=== PATIENT | male | born 1945 | race Caucasian/White ===

== ENCOUNTER 2016-07-31 01:15 | Inpatient (IN) | payer OTHER ==
[2016-07-31] VITALS (7 sets, daily range): BP systolic 94–128; BP diastolic 50–88
[~2016-07-31] VITALS: Ht 177.8 cm; Wt 147.4 kg
--- NOTE | ~2016-07-31 | D ---
[facility] [place] [address] [place] [address] DISCHARGE SUMMARY Name: IVONNE SARKAR Room #: 436-P ADM IN M.R.#: [id number] Admission: 07/31/16 Attend Phys: Korina Abernathy Discharge: Date of : 49 Report #: [id number] THIS REPORT FOR: //name// CC: Ruben Cummings FINAL DIAGNOSES: 1. Acute on chronic respiratory failure. 2. Healthcare-associated pneumonia. 3. Bacteremia. 4. Oropharyngeal dysphagia. 5. Cerebrovascular disease. HOSPITAL COURSE: The patient was transferred with respiratory distress and placed back on the ventilator. He had just attempted to wean from a long-term bed at an LTAC facility and was using trach shield for a few days prior to his presentation. Hospital workup and treatment deemed that he had chronic respiratory failure needed chronic ventilator. There were some questions about some elevated cardiac enzymes. Cardiac service did not feel invasive workup is indicated due to his debility and he is not a candidate for invasive treatment. Medical therapy was the only indicated option. He failed a video swallow and we will resume tube feeding. He had blood cultures, which were coag-negative, gram-positive. ID felt this was likely a skin contaminant. Empiric antibiotics will continue until final cultures are obtained. On the day of discharge, he was asleep on the vent with stable vital signs. DISPOSITION: Return to [facility] long-term care facility on the chronic ventilator unit. I signed his transfer orders and IV antibiotics to continue maximum of 1 week, but if cultures come back that could be changed or discontinued earlier. He would be under the care of Dr. Boaz Cummings and follow up by Dr. Jarred Cummings. <ELECTRONICALLY SIGNED> By: Soren Sawant MD 08/02/16 1434 1321 1404 Soren Sawant MD /nt
--- NOTE | ~2016-07-31 | H ---
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 This is a patient who has been at the chronic vent unit and had recently been weaned from the ventilator and we will try to manage him as best we could, but he got in trouble again and had to be sent over and place back on the ventilator. There is really no history available from the patient. PAST MEDICAL HISTORY: Noteworthy for stroke, obstructive sleep apnea, and atrial fibrillation. We now know him well. MEDICATIONS: List is well documented on the record. FAMILY HISTORY, SOCIAL HISTORY, AND REVIEW OF SYSTEMS: Otherwise, negative other than his family down in [place] struggles with his deficiencies from the stroke. PHYSICAL EXAMINATION: GENERAL: Shows an awake, alert and oriented. VITAL SIGNS: He is on AC setting with a rate of 12, 50% FiO2 with sats in the high 90s. HEENT: Otherwise, negative. He has left neglect and significant right hemiparesis. CHEST: Coarse. CARDIOVASCULAR: Shows rhythm. ABDOMEN: Soft and nontender with PEG tube. EXTREMITIES: Shows edema and he has got a massive wound on his buttocks that we have known and have been working on for about the last year and it is significantly improved, but still significantly large stage 4. ASSESSMENT: This is a patient with respiratory failure from stroke and I think we proven now that he is ventilatory depended and he failed ventilatory weaning. We will have speech therapy see and return him to the chronic vent unit tomorrow. By: 1122 1200 Ruben Cummings MD /nt
--- NOTE | ~2016-07-31 | HC ---
[facility] [place] [address] CONSULTATION Name: IVONNE SARKAR Room #: 436-P [facility] IN M.R.#: [id number] Admission: 07/31/16 Attend Phys: Korina Abernathy Discharge: 08/02/16 Date of : 49 Report #: [id number] THIS REPORT FOR: //name// CC: Ruben Cumminsg DATE OF SERVICE: 07/31/2016 REASON FOR CONSULTATION: Respiratory failure. IMPRESSION: 1. Chronic respiratory failure. 2. Possible right infiltrate/pneumonia. 3. Elevated troponin. 4. History of cerebrovascular accident. 5. Permanent atrial fibrillation. PLAN: We will check sputum cultures and will continue on Zosyn. Await culture results, continue current ventilator settings. Continue aerosol. We will follow with you. DVT prophylaxis per Dr. Cummings. HISTORY OF PRESENT ILLNESS: A 71-year-old male with respiratory failure, comes in to hospital through emergency room with shortness breath and hypoxia. PAST MEDICAL HISTORY: ALLERGIES: To ZURI INHIBITORS and SULFA. PAST MEDICAL HISTORY: Includes 1. COPD. 2. Hypertension. 3. Peptic ulcer disease. 4. atrial fibrillation. 5. Overweight. 6. CHF. PAST SURGICAL HISTORY: Include hernia, trach and PEG. SOCIAL HISTORY: Positive tobacco in past. Negative ETOH currently. FAMILY HISTORY: Non-obtainable. REVIEW OF SYSTEMS: Positive shortness of breath, no definite chest pain, palpitations, feels comfortable on ventilator. PHYSICAL EXAMINATION: VITAL SIGNS: T-max 99.5, pulse 69, respirations 20, BP 99/65. EYES: Negative icterus. [facility] [address] [place] [address] CONSULTATION Name: IVONNE SARKAR Room #: 436-P DIS IN M.R.#: [id number] Admission: 07/31/16 Attend Phys: Korina Abernathy Discharge: 08/02/16 Date of : 49 Report #: [id number] NECK: Negative JVD. Trach in place. LUNGS: Clear anteriorly. HEART: Regular. ABDOMEN: Bowel sounds present. PEG tube in place, nontender. EXTREMITIES: Showed left hemiparesis. Extremities showed positive edema. LABORATORY DATA: A pH 7.425, pCO2 of 56, pO2 64, 40%, rate 18, tidal volume 650, PEEP of 5, minute ventilation 12 PICC airway pressure 24. White count 12.3, hemoglobin 13.7 and platelets 259. BUN 31, creatinine 0.8, sodium 143. SGPT 24. Troponin 0.69. ProBNP 1126. INR 1.5. We will follow closely with you. <ELECTRONICALLY SIGNED> By: Santiago Winston MD 08/04/16 0702 1646 1855 Santiago Winston MD /nt
--- NOTE | ~2016-07-31 | 2DMMODE ---
[facility] [place] [address] 2 D/M-MODE ECHOCARDIOGRAM Name: IVONNE SARKAR Room #: 436-P [facility] IN .R.#: [id number] Admission: 07/31/16 Attend Phys: Ruben Sargent Discharge: Date of : 49 Date of Service: 08/01/16 0825 Report #: [id number] THIS REPORT FOR: //name// APPROVED REPORT EXAM: Comprehensive 2D, Doppler, and color-flow Echocardiogram Patient Location: BedsideRoom 436 Blood Pressure: 125/58 mmHg HR: 100 bpm Rhythm: Atrial Fibrillation Other Information Study Quality: Adequate Indications Elevated BP Atrial Fibrillation Elevated troponin. Hx: Afib, COPD, HTN, morbid obesity. 2D Dimensions RVDd: 43.13 mm LVEF(%): 33.31 (>50%) IVSd: 16.09 (7-11mm) LVOT Diam: 22.45 (18-24mm) LVDd: 60.52 mm PWd: 12.31 (7-11mm) Ascending Aorta: 34.89 mm LVDs: 50.76 (25-40mm) Aortic Root: 38.00 mm Medrano's LVEF: 33.31 % Volumes Left Atrial Volume (Systole) Single Plane 4CH: 91.44 mL Single Plane 2CH: 102.65 mL Aortic Valve AoV Peak Jamal.: 1.14 m/s AO Peak Gr.: 5.32 mmHg LV Max P.89 mmHg LV Max: 0.69 m/s Mitral Valve MV E Max Jamal.: 0.72 m/s MV Decel. Time: 143.39 ms Pulmonary Valve [facility] [employer] [address] [place] [address] 2 D/M-MODE ECHOCARDIOGRAM Name: IVONNE SARKAR Room #: 436-P ADM IN M.R.#: [id number] Admission: 07/31/16 Attend Phys: Ruben Sargent Discharge: Date of : 49 Date of Service: 08/01/16 0825 Report #: [id number] PV Peak Jamal.: 0.74 m/s PV Peak Gr.: 2.22 mmHg Tricuspid Valve TR Peak Jamal.: 2.21 m/s RAP Estimate: 5.00 mmHg TR Peak Gr.: 19.96 mmHg RVSP: 25.00 mmHg Left Ventricle Left ventricle is mildly dilated. Moderate concentric left ventricular hypertrophy. Left ventricular systolic function is at lower limits of normal. LVEF is 45-50%. Diastology indeterminate due to Afib. Right Ventricle Right ventricle is dilated. Right ventricle is hypokinetic. Atria Left atrium is moderately dilated. Right atrium is moderately dilated. Aortic Valve Mild aortic valve calcification Mild aortic regurgitation. There is no aortic valvular stenosis. Mitral Valve Mild mitral annular calcification. Mild to moderate mitral regurgitation. Tricuspid Valve The tricuspid valve is normal in structure. There is mild to moderate tricuspid regurgitation. The right atrial pressure is estimated at 5 mmHg. Right ventricular systolic pressure is estimated at 25 mmHg. Pulmonic Valve Pulmonic valve is not well visualized. Trace pulmonic regurgitation. Great Vessels Aortic root is mildly dilated. The ascending aorta is normal in size. IVC is normal in size and collapses >50% with inspiration. Pericardium There is no pericardial effusion. [facility] [address] [address] 2 D/M-MODE ECHOCARDIOGRAM Name: IVONNE SARKAR Room #: 436-P [facility] IN ..#: [id number] Admission: 07/31/16 Attend Phys: Ruben Sargent Discharge: Date of : 49 Date of Service: 08/01/168[address] Report #: [id number] <Conclusion> Left ventricular systolic function is at lower limits of normal. LVEF is 45-50%. Both atria are moderately dilated. Mild aortic valve calcification without stenosis or insufficiency Mild mitral annular calcification. Mild to moderate mitral regurgitation. There is mild to moderate tricuspid regurgitation. The right atrial pressure is estimated at 5 mmHg. Right ventricular systolic pressure is estimated at 25 mmHg. There is no pericardial effusion. <ELECTRONICALLY SIGNED> By: Nolberto Bansal MD, [facility] 08/01/16824 4 0825 Nolberto Bansal MD, FACC /INF
--- NOTE | ~2016-07-31 | EKG ---
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
--- NOTE | ~2016-07-31 | HC ---
[facility] [place] [address] [place] [address] CONSULTATION Name: IVONNE SARKAR Room #: 436-P ADM IN M.R.#: [id number] Admission: 07/31/16 Attend Phys: Korina Abernathy Discharge: Date of : 49 Report #: [id number] THIS REPORT FOR: //name// CC: Ruben Cummings REASON FOR CONSULTATION: I was asked to evaluate concerning pneumonia and bacteremia. HISTORY OF PRESENT ILLNESS: The patient is a 71-year-old with underlying history of atrial fibrillation, hypertension, COPD, previous stroke with left hemiparesis and respiratory failure, who had been on chronic ventilatory unit at [facility]. He did wean from the ventilator, but developed respiratory compromise, went back on the ventilator and was rehospitalized. Has a right lower lobe infiltrate, elevated troponin and positive urine studies. The patient was alert and responsive. Could not give me a history. Did not appear to be in any distress. He stated that he was in no pain. No nausea, vomiting or diarrhea noted. He does have an indwelling Maynard catheter. He was placed back on the ventilator at 50% FIO2. Sputum cultures are pending. ALLERGIES: SULFA, ZURI INHIBITORS. MEDICATIONS: As noted on his JUL, now on Zosyn. PAST MEDICAL HISTORY: Atrial fibrillation, hypertension, obstructive sleep apnea, COPD, diabetes, obesity, hypothyroidism, tracheostomy, PEG tube, left hip pressure ulcer, treated in 2016, stroke with left-sided weakness and aphasia. SOCIAL HISTORY: He is , nonsmoker, no significant alcohol intake. FAMILY HISTORY: Not available. PHYSICAL EXAMINATION: VITAL SIGNS: He is afebrile, hemodynamically stable. GENERAL: He is alert and cooperative. Unable to roll in bed on his own. Did not have assistance to assess his posterior skin. Anteriorly was unremarkable. He did have changes of the venous stasis dermatitis to both lower extremities. HEENT: Unremarkable. Trach was unremarkable. Peripheral IV in his right wrist. CHEST: Clear anteriorly. HEART: Regular. ABDOMEN: Obese, soft, PEG site unremarkable. Indwelling Maynard catheter. LABORATORY STUDIES: Sodium 143, potassium 4.8, bicarbonate of 34, creatinine 0.8, alkaline phosphatase 127, ALT 24, hemoglobin 13.7, white count 12.3, platelet count 259,000. Troponin 0.7. BNP 1126. Blood cultures 1/ showing Staph. Urinalysis positive for wbc's and bacteria. Urine culture pending. Sputum culture pending. Urine antigens for strep pneumo and Legionella pending. [address] [address] CONSULTATION Name: IVONNE SARKAR Room #: 436-P [facility] IN M.R.#: [id number] Admission: 07/31/16 Attend Phys: Korina Abernathy Discharge: Date of : 49 Report #: [id number] Chest x-ray, right lower lobe atelectasis, infiltrate. Echocardiogram, mild to moderate mitral regurgitation and tricuspid regurgitation. Ultrasound of lower extremity negative for DVT. IMPRESSION: A 71-year-old with respiratory failure following stroke underlying chronic obstructive pulmonary disease, atrial fibrillation, hypertension, now with staphylococcal bacteremia. Still indeterminate whether this is a contaminant or true infection. Recommend adding vancomycin to Zosyn pending culture results. We will evaluate with further assistance next visit to reassess his right hip region. By nursing records, it appears that the right trochanteric wound remains pink with good granulation tissue and no purulent drainage. <ELECTRONICALLY SIGNED> By: Jarred Cummings MD 08/02/16 0847 0852 1020 Jarred Cummings MD /nt
[~2016-07-31 01:15] MED LIST: ACCUNEB SO1.25 MG/1 INH; AMLODIPINE BESY10 MG PO; ATIVAN0.5 MG PER TUBE; BUSPIRONE HCL5 MG PER TUBE; CARDIZEM60 MG PER TUBE; CARVEDILOL12.5 MG PER TUBE; CERTA VITE9 MG/15 ML PER TUBE; COUMADIN 4 MG TA4 M1 PER TUBE; DAKIN'S473 M1 MC; DOXYCYCLINE 10100 MG PO; HYDROCODONE-AP1 EAC6 PER TUBE; K-SOL20 MEQ/15 PER TUBE; LASIX 40 MG TAB40 M2 PER TUBE; LEVOTHYROXIN0.112 M1 PO; LIPITOR 20 MG T20 M1 PER TUBE; NEOSPORIN28 GM TOP; NYAMYC15 GM TOP; ORAZINC220 MG PER TUBE; PEPCID20 MG PER TUBE; PULMICORT0.5 MG/22 INH; ROBITUSSIN100 MG/53 PER TUBE; ZINC SULFATE 2220 M1 PER TUBE
[2016-07-31 01:40] LABS: ABSOLUTE NEUTROPHILS 8.9 thou/uL (1.4-8.2); BASOPHILS 0.7 % (0.0-2.0); EOSINOPHILS 2.6 % (0.0-3.0); HEMATOCRIT 41.4 % (42.0-52.0); HEMOGLOBIN 13.7 gm/dL (14.0-18.0); MCH 30.2 pg (26.0-34.0); MCHC 33.1 g/dL (28.0-37.0); MCV 91.3 fL (80.0-100.0); MONOCYTES 8.5 % (1.0-8.0); PLATELET COUNT 259 thou/uL (150-400); POLYS 72.2 % (36.0-66.0); RBC 4.54 mil/uL (4.50-6.00); RDW 17.1 % (10.5-14.5); WBC 12.3 thou/uL (4.0-11.0)
[2016-07-31 01:47] LABS: ABG SAMPLE TYPE ARTERIAL; BE(vivo) 9.3 mmol/L (-2 to +3); HCO3 35.8 mmol/L (22.0-26.0); LACTATE 1.78 mmol/L (0.5-2.0); O2(CT) 18.6 mL/dL (15.0-23.0); O2Hb 91.5 % (92.0-98.0); PCO2 55.8 mmHg (35.0-45.0); PO2 63.4 mmHg (80.0-100.0); pH 7.425 (7.360-7.450); sO2 92.3 % (92.0-98.0); tCO2 37.5 mmol/L (24.0-30.0)
[2016-07-31 01:48] LABS: STICK SITE R.RADIAL
[2016-07-31 01:49] LABS: ABG COMMENT A/C RATE 12; TIDAL VOLUME 650 ml
[2016-07-31 01:49] LABS: MANUAL DIFF NO
[2016-07-31 02:06] LABS: ALBUMIN 2.5 g/dL (3.4-5.0); CREATININE 0.8 mg/dL (0.6-1.3); POTASSIUM 4.8 mmol/L (3.5-5.1); TOTAL BILIRUBIN 0.5 mg/dL (<0.1-1.0)
[2016-07-31 02:08] LABS: TROPONIN-I 0.79 ng/mL (<0.04-0.07)
[2016-07-31 02:21] LABS: TOTAL PROTEIN 8.2 g/dL (6.4-8.2)
[2016-07-31] MEDS ORDERED: LEVAQUIN 500 M500 M2 PO (04:03)
[2016-07-31] MEDS ORDERED: ARGINAID POWDE1 EACH PER TUBE (04:06)
[2016-07-31] MEDS ORDERED: CHLORASEPTIC20 ML MM (07:57)
[2016-07-31 10:09] LABS: URINE BILIRUBIN NEGATIVE (Negative); URINE BLOOD 3+ (Negative); URINE COLOR YELLOW; URINE GLUCOSE-RANDOM* NEGATIVE (Negative); URINE KETONES NEGATIVE (Negative); URINE NITRITE NEGATIVE (Negative); URINE PROTEIN (DIPSTICK) 2+ (Negative); URINE SPECIFIC GRAVITY 1.025 (1.003-1.035); URINE UROBILINOGEN 0.2 E.U./dl (0.2-1.0)
[2016-07-31 10:32] LABS: AMORPHOUS URATES Moderate /LPF (None Seen); CASTS None Seen /LPF (None Seen); SQUAMOUS None Seen /LPF (0-3); URINE RBC 3-10 Few /HPF (0-2); URINE WBC >25 Many /HPF (0-5)
[2016-07-31 13:59] LABS: INR 1.5; PROTIME 15.8 Seconds (9.3-11.4)
[2016-08-01 04:51] VITALS: BP 128/61
[2016-08-01 07:49] VITALS: BP 126/68
[2016-08-01] MEDS ORDERED: ZOSYN 3.3753.375 GM IV (10:16)
[2016-08-01] MEDS ORDERED: VANCO 1 GR1 GM/250 M IVPB (10:17)
[2016-08-01 14:43] LABS: ABSOLUTE NEUTROPHILS 7.1 thou/uL (1.4-8.2); BASOPHILS 0.6 % (0.0-2.0); EOSINOPHILS 2.2 % (0.0-3.0); HEMATOCRIT 39.9 % (42.0-52.0); HEMOGLOBIN 13.2 gm/dL (14.0-18.0); LYMPHOCYTES 14.5 % (24.0-44.0); MCH 30.4 pg (26.0-34.0); MCHC 33.2 g/dL (28.0-37.0); MCV 91.5 fL (80.0-100.0); MONOCYTES 7.6 % (1.0-8.0); PLATELET COUNT 237 thou/uL (150-400); POLYS 75.1 % (36.0-66.0); RBC 4.36 mil/uL (4.50-6.00); RDW 17.5 % (10.5-14.5); WBC 9.4 thou/uL (4.0-11.0)
[2016-08-01 14:49] LABS: MANUAL DIFF NO
[2016-08-01 16:27] LABS: ALBUMIN 2.4 g/dL (3.4-5.0); CALCIUM 9.5 mg/dL (8.5-10.1); POTASSIUM 3.5 mmol/L (3.5-5.1); TOTAL BILIRUBIN 0.8 mg/dL (<0.1-1.0); TOTAL PROTEIN 7.7 g/dL (6.4-8.2)
[2016-08-01 16:30] VITALS: BP 109/60
[2016-08-01 20:00] VITALS: BP 107/73
[2016-08-02] VITALS: BP 110/70
[2016-08-02 04:00] VITALS: BP 110/67
[2016-08-02 08:33] VITALS: BP 106/65
[2016-08-02 11:33] VITALS: BP 99/61
== END 2016-08-02 16:05 | DRG 208 ==
LOC: ER 01:15 → 4S 03:48
PROVIDERS: Emergency Medicine; Internal Medicine; Internal Medicine Pulmonary Disease; Nurse Practitioner Gerontology
PROC: 5A1945Z Respiratory Ventilation, 24-96 Consecutive Hours (ICD-10-PCS; principal; 2016-07-31)
DX: J18.9 Pneumonia, unspecified organism (principal); J96.20 Acute and chronic respiratory failure, unspecified whether with hypoxia or hypercapnia; Z68.42 Body mass index [BMI] 45.0-49.9, adult; J44.0 Chronic obstructive pulmonary disease with (acute) lower respiratory infection; I11.0 Hypertensive heart disease with heart failure; E03.9 Hypothyroidism, unspecified; I50.9 Heart failure, unspecified; J15.9 Unspecified bacterial pneumonia; G47.33 Obstructive sleep apnea (adult) (pediatric); E66.01 Morbid (severe) obesity due to excess calories; E11.9 Type 2 diabetes mellitus without complications; I48.2 Chronic atrial fibrillation; Z87.891 Personal history of nicotine dependence; Z88.2 Allergy status to sulfonamides; Z88.8 Allergy status to other drugs, medicaments and biological substances; Z86.73 Personal history of transient ischemic attack (TIA), and cerebral infarction without residual deficits; Z87.11 Personal history of peptic ulcer disease; Z93.1 Gastrostomy status; Z93.0 Tracheostomy status
CPT/HCPCS: 10100

== ENCOUNTER 2016-09-18 12:20 | Emergency (ER) | payer OTHER ==
[~2016-09-18] VITALS: Ht 182.9 cm; Wt 117.9 kg
[2016-09-18 12:20] VITALS: BP 95/60
[~2016-09-18 12:20] MED LIST changes: +ARGINAID POWDE1 EACH PER TUBE; +CHLORASEPTIC20 ML MM; +LEVAQUIN 500 M500 M2 PO; +VANCO 1 GR1 GM/250 M IVPB; +ZOSYN 3.3753.375 GM IV
[2016-09-18 12:50] LABS: URINE BILIRUBIN NEGATIVE (Negative); URINE BLOOD 1+ (Negative); URINE COLOR YELLOW; URINE GLUCOSE-RANDOM* NEGATIVE (Negative); URINE KETONES NEGATIVE (Negative); URINE LEUKOCYTES-REFLEX 3+ (Negative); URINE PROTEIN (DIPSTICK) 2+ (Negative); URINE UROBILINOGEN 0.2 E.U./dl (0.2-1.0)
[2016-09-18 12:50] LABS: ABSOLUTE NEUTROPHILS 10.6 thou/uL (1.4-8.2); BASOPHILS 0.5 % (0.0-2.0); EOSINOPHILS 0.6 % (0.0-3.0); HEMATOCRIT 40.2 % (42.0-52.0); HEMOGLOBIN 12.9 gm/dL (14.0-18.0); LYMPHOCYTES 15.1 % (24.0-44.0); MCHC 32.1 g/dL (28.0-37.0); MCV 93.4 fL (80.0-100.0); MONOCYTES 7.5 % (1.0-8.0); PLATELET COUNT 230 thou/uL (150-400); POLYS 76.3 % (36.0-66.0); RDW 16.8 % (10.5-14.5); WBC 13.9 thou/uL (4.0-11.0)
[2016-09-18 12:57] LABS: AMORPHOUS PHOSPHATES Moderate /LPF (None Seen); CASTS None Seen /LPF (None Seen); SQUAMOUS 0-3 Few /LPF (0-3)
[2016-09-18 12:58] LABS: URINE RBC 0-2 Rare /HPF (0-2); URINE WBC-REFLEX 0-5 Rare /HPF (0-5)
[2016-09-18 12:59] LABS: CALCIUM 9.7 mg/dL (8.5-10.1); CREATININE 0.9 mg/dL (0.7-1.3); POTASSIUM 4.2 mmol/L (3.5-5.1)
[2016-09-18 13:03] LABS: ALBUMIN 2.3 g/dL (3.4-5.0); DIRECT BILIRUBIN 0.1 mg/dL (<0.1-0.3); TOTAL BILIRUBIN 0.4 mg/dL (<0.1-1.0); TOTAL PROTEIN 8.9 g/dL (6.4-8.2)
[2016-09-18 13:06] LABS: SSA (PROTEIN CONFIRMATORY) 2+ (APPROX. 10-100) mg/dL (Negative)
[2016-09-18 13:10] LABS: MANUAL DIFF NO
[2016-09-18] MEDS ORDERED: LEVAQUIN 750 M750 MG PO (14:16)
[2016-09-18 18:40] VITALS: BP 132/62
== END 2016-09-18 18:52 | disposition home or self-care (01) ==
LOC: ER 12:20 → EROBS 13:46 → ER 18:52
PROVIDERS: Emergency Medicine
DX: N39.0 Urinary tract infection, site not specified (principal); I10 Essential (primary) hypertension; E03.9 Hypothyroidism, unspecified; J96.10 Chronic respiratory failure, unspecified whether with hypoxia or hypercapnia; G47.33 Obstructive sleep apnea (adult) (pediatric); E11.9 Type 2 diabetes mellitus without complications; I48.2 Chronic atrial fibrillation; E66.01 Morbid (severe) obesity due to excess calories; Z68.35 Body mass index [BMI] 35.0-35.9, adult; Z88.2 Allergy status to sulfonamides; Z88.8 Allergy status to other drugs, medicaments and biological substances; Z87.891 Personal history of nicotine dependence

== ENCOUNTER 2016-09-28 03:11 | Inpatient (IN) | payer OTHER ==
[~2016-09-28] VITALS: Ht 182.9 cm; Wt 146.8 kg
[2016-09-28] VITALS (63 sets, daily range): BP systolic 51–173; BP diastolic 28–154
--- NOTE | ~2016-09-28 | HC ---
[facility] [place] [address] CONSULTATION Name: IVONNE SARKAR Room #: 247-P ADM IN M.R.#: [id number] Admission: 09/28/16 Attend Phys: Korina Abernathy Discharge: Date of : 49 Report #: [id number] THIS REPORT FOR: //name// CC: Ruben Cummings PRIMARY CARE PHYSICIAN: Dr. Boaz Cummings. REFERRAL PHYSICIAN: Dr. Sawant. REASON FOR REFERRAL: Acute on chronic respiratory failure. HISTORY OF PRESENT ILLNESS: The patient is a 71-year-old white male who was brought to the Emergency Room with altered mental status. He was felt to have pneumonia. A pulmonary consultation was requested. Due to history of CVA, the patient has become ventilator dependent. He suffered a right middle cerebral artery cerebrovascular accident with left side hemiparesis. He has morbid obesity along with obstructive sleep apnea, diabetes, chronic atrial fibrillation, hypothyroidism, hypertension. The patient was last hospitalized in 07/2016, pneumonia. Chest x-ray performed on admission revealed left lower lobe infiltrates, mild right lower lobe infiltrates, volume loss. PAST MEDICAL HISTORY: As mentioned above. Chronic respiratory failure, ventilator dependent, following a right-sided with CVA, left hemiparesis, obesity, obstructive sleep apnea, diabetes mellitus type 2, atrial fibrillation, hypertension, debility along with a history of stage IV decubitus ulcer involving his left hip. PAST SURGICAL HISTORY: As mentioned above, status post chronic tracheostomy. ALLERGIES: SULFA AND ZURI INHIBITORS, REACTIONS NOT SPECIFIED. MEDICATIONS: From the LTAC revealed nebulized albuterol, Synthroid, Coreg, Cardizem, Lasix, zinc, potassium supplements, Ativan, arginine, Coumadin. FAMILY HISTORY: Noncontributory. SOCIAL HISTORY: The patient has smoked in the past. No alcohol use. He currently resides at long-term care facility due to vent dependency and debility following his CVA. REVIEW OF SYSTEMS: Unobtainable as the patient is somnolent. PHYSICAL EXAMINATION: [facility] [address] [place] [address] CONSULTATION Name: IVONNE SARKAR Room #: 247-P [facility] IN .R.#: [id number] Admission: 09/28/16 Attend Phys: Korina Abernathy Discharge: Date of : 49 Report #: [id number] VITAL SIGNS: Temperature is 97.6 degrees Fahrenheit, pulse is 100, respiratory rate is 22, blood pressure 109/61 mmHg, saturation 99%. HEENT: Normocephalic, atraumatic. NECK: Supple, without any lymphadenopathy or thyromegaly. CHEST: Breath sounds are fair. A few scattered crackles in the bases. No wheezes. CARDIOVASCULAR: Heart sounds are distant. No obvious murmurs or gallop. Pulses are 2+/4+ bilaterally. ABDOMEN: Soft, nontender, no organomegaly or masses felt. GENITOURINARY: Deferred. RECTAL: Deferred. EXTREMITIES: Remarkable 1+ bilateral pretibial edema. NEUROLOGIC: The patient is to quite somnolent this morning to verbal stimuli. LABORATORY DATA: Chest x-ray as mentioned above. CT head showed extensive encephalomalacia involving the right middle cerebral artery division, old right middle cerebral artery infarct, atrophy with chronic microvascular changes. UA was notable for increase in WBCs, bacteria. WBC 15,900, hemoglobin is 12.8. No significant bandemia. Platelets are normal. Sodium 154, potassium 4.8, chloride 113, BUN is 65, creatinine is 1.0, bicarbonate is 37, INR is 1.8. Arterial blood gas revealed pH 7.36, pCO2 of 63, pO2 102 on FiO2 70%, ventilator are parameters reviewed. IMPRESSION: 1. Acute on chronic hypercapnic hypoxic respiratory failure in this 71-year-old white male. Chest x-ray shows new infiltrates. He has leukocytosis. UA was also remarkable for wbc's and bacteria. Pneumonia, suspected, nosocomial infection should be suspected including possible aspiration. 2. Infiltrates, probable pneumonia as mentioned above. 3. Possible urinary tract infection. 4. History of cerebrovascular accident with left-sided hemiparesis, debility along with ventilator dependency. 5. Hypernatremia along with azotemia. This suggests volume depletion. 6. Permanent atrial fibrillation, on chronic anticoagulation. INR is subtherapeutic at 1.8. 7. Encephalopathy, due to toxic and metabolic causes. 8. Sepsis, severe with borderline hypotension. Sepsis protocol will be appropriate. RECOMMENDATION: Agree with Zosyn and vancomycin. Would also start IV fluids to correct electrolyte abnormalities. DVT and GI prophylaxis will be addressed. Once stable, nutritional support will be started. <ELECTRONICALLY SIGNED> By: Kev Mario MD 09/28/16 1254 1034 1246 Kev Mario MD /nt
--- NOTE | ~2016-09-28 | H ---
[facility] [place] [address] [place] [address] HISTORY AND PHYSICAL Name: IVONNE SARKAR Room #: 247-P ADM IN M.R.#: [id number] Admission: 09/28/16 Attend Phys: Korina Abernathy Discharge: Date of : 49 Report #: [id number] THIS REPORT FOR: //name// CC: Ruben Cummings DATE OF SERVICE: 09/28/2016 CHIEF COMPLAINT: Altered mental status and low blood pressure. HISTORY OF PRESENT ILLNESS: The patient is a 71-year-old gentleman who is ventilator dependent, treated at [facility], sent to the hospital with altered mental status. The nursing staff said he was less responsive than his baseline. They have also noted some low blood pressures. In the last week or 10 days, he had been seen in the Emergency Room and treated with empiric antibiotics and sent back to the facility. However, he has had a change in status in the last 24 hours and was admitted with a working diagnosis of sepsis. PAST MEDICAL HISTORY: Cerebrovascular disease, chronic hypoxic respiratory failure, post stroke right middle cerebral artery stroke with left hemiparesis, chronic atrial fibrillation, aspiration pneumonia, diabetes type 2, obstructive sleep apnea, morbid obesity, history of MRSA, hypertension, hypothyroidism, ventilator dependent. PAST SURGICAL HISTORY: Trach and PEG. FAMILY HISTORY: Unknown. SOCIAL HISTORY: Unknown. ALLERGIES: ZURI INHIBITORS and SULFA. MEDICATIONS: Albuterol, Levoxyl, Coreg, diltiazem, Lasix, hydrocodone, zinc, potassium, Ativan, Coumadin. REVIEW OF SYSTEMS: He is unable to give review. PHYSICAL EXAMINATION: VITAL SIGNS: Temperature 36.4, pulse 100, respirations 23, blood pressure 94/52, ranging to 109/61, O2 sat 99% on the ventilator 40%. GENERAL: He is asleep, marginally alert, looks chronically ill. HEAD AND NECK: Unremarkable with trach site in place. LUNGS: Clear anteriorly. HEART: Regular. ABDOMEN: Soft, normoactive bowel sounds. PEG tube in place. EXTREMITIES: 1+ edema. [facility] [address] [place] [address] HISTORY AND PHYSICAL Name: IVONNE SARKAR Room #: 247-P ADM IN M.R.#: [id number] Admission: 09/28/16 Attend Phys: Korina Abernathy Discharge: Date of : 49 Report #: [id number] NEUROLOGIC: I cannot get him to follow any type of neuro exam. LABORATORY DATA: Reviewed, appears to have chronic CO2 elevation at 63 on ABG. White count was 15.9 with left shift. INR is 1.8. Sodium was 154. BUN 65. Urinalysis was abnormal. ASSESSMENT: 1. Sepsis syndrome. 2. Chronic hypoxic respiratory failure. 3. Atrial fibrillation. 4. Cerebrovascular disease. 5. Late effect stroke, left hemiparesis. 6. Anemia of chronic disease. 7. Hypernatremia. 8. Cystitis. 9. Diarrhea. 10. Chronic anticoagulation. 11. Chronic ventilator dependence. PLAN: He is admitted to ICU for full workup and treatment. Pulmonary and ID have been consulted and talked to the nurse about stool studies. Home medications will be adjusted accordingly given his electrolyte imbalance and hypotension. <ELECTRONICALLY SIGNED> By: Soren Sawant MD 09/29/16 0835 0946 1012 Soren Sawant MD /nt
--- NOTE | ~2016-09-28 | HC ---
[facility] [place] [address] CONSULTATION Name: IVONNE SARKAR Room #: 452-P [facility] IN M.R.#: [id number] Admission: 09/28/16 Attend Phys: Korina Abernathy Discharge: 10/06/16 Date of : 49 Report #: [id number] THIS REPORT FOR: //name// CC: Ruben Cummings DATE OF SERVICE: 09/28/2016 CHIEF COMPLAINT: Left hip ulceration. HISTORY OF PRESENT ILLNESS: This is a 71-year-old white male who is ventilator dependent, who was admitted through the emergency department for btrzd-ty-zdgrdyi respiratory failure. The patient is currently in the ICU. We have been asked to follow the patient for a chronic ulceration on his left greater trochanteric region. The patient is well known to us from a previous hospitalization in the past for pneumonia. The patient denies any other associated wounds at this time. The patient denies any pain associated with the wound itself. PAST MEDICAL HISTORY: Significant for CVA with ventilator dependency and respiratory failure. 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 CURRENT MEDICATIONS: Multiple, I reviewed the patient's medication list. DRUG ALLERGIES: SULFA and ZURI INHIBITORS. SOCIAL HISTORY: The patient resides in a chronic fci care facility, ventilator dependent. FAMILY HISTORY: Not pertinent to current medical condition. REVIEW OF SYSTEMS: Unobtainable given the fact that the patient is intubated and somnolent. PHYSICAL EXAMINATION: HEENT: Normocephalic, atraumatic. Mucous membranes are somewhat dry. Pupils are round. Sclerae are white. NECK: The patient has tracheostomy in place without signs of excoriation or JVD. BACK: Nontender. LUNGS: Slightly diminished breath sounds heard throughout. Occasional scattered wheeze. CHEST: Nontender. HEART: Regular, without murmur. ABDOMEN: Obese, soft, nontender. PEG tube is in place. [facility] [address] [place] [address] CONSULTATION Name: IVONNE SARKAR Room #: 452-P DIS IN M.R.#: [id number] Admission: 09/28/16 Attend Phys: Korina Abernathy Discharge: 10/06/16 Date of : 49 Report #: [id number] EXTREMITIES: The patient has no movement in the left side. Bilateral heels are intact without ulcerations. Distal pulses are intact. Evaluation of left greater trochanteric region reveals an ulceration, which is stage 4 with exposed bone, which measures 9.0 x 4.5 x 5.5 cm. There is a tunnel that goes 8 cm ____. There is moderate amount of seropurulent drainage noted with minimal odor. Periulcer itself ____ is otherwise intact without significant signs of erythema, warmth, fluctuance or cellulitis. NEUROLOGIC: Cranial nerves 2-12 are grossly intact. The patient has left-sided hemiparesis. LABORATORY VALUES: White count 9.4 and hemoglobin 10.9. Albumin is low at 2.3. IMPRESSION: 1. Chronic stage 4 left greater trochanteric ulceration, overall stable. 2. Diabetes mellitus. 3. Chronic respiratory failure with ventilator dependence. 4. Severe protein-calorie malnutrition with albumin of 2.3. 5. Slzbu-eq-vcorsyi respiratory failure. 6. Generalized debility. PLAN: At this time, while the patient is hospitalized here, we will use Dakin's quarter strength wet-to-dry dressings b.i.d., cover this with ABDs to the left greater trochanteric ulceration. We will have the patient on a low air loss mattress and have him turned every 2 hours to offload his sacral coccygeal area which is free from any ulcerations at this time. We will use heel protection at all times given the fact the patient is at high risk for developing a heel ulceration. We will make sure we maximize his protein supplementation via his tube feedings to assist in the healing. We will continue to manage his wound care while he is here in the hospital. By: [id number] Walker Rehman MD /lilia
--- NOTE | ~2016-09-28 | EKG ---
[address] [address] ELECTROCARDIOGRAM REPORT Name: IVONNE SARKAR Room #: 247-P ADM IN M.R.#: [id number] Admission: 09/28/16 Attend Phys: Korina Abernathy Discharge: Date of : 49 Report #: [id number] THIS REPORT FOR: //name// [facility] ED Test Date: 2016-09-28 Test Time: 03:15:02 Pat Name: IVONNE SARKAR Department: Room: 247 P Gender: M Chief Of Pediatric Urology: SIRI : 1945 Requested By: Meeta Aldridge Order Number: [id number] MD: Nolberto Bansal Measurements Intervals [place] Rate: 122 P: [place]: QRS: -79 QRSD: 163 T: 6 QT: 353 QTc: 503 Interpretive Statements Atrial flutter with 2:1 AV block RBBB and LAFB Compared to ECG 07/31/2016 01:21:17 No significant changes found Electronically Signed On 09-28-2016 7:59:24 CDT by Nolberto Bansal [email or web address] <ELECTRONICALLY SIGNED> By: Nolberto Bansal MD, [facility] 09/28/16 0759 0315 0315 Nolberto Bansal MD, [facility] /EPI
--- NOTE | ~2016-09-28 | D ---
[facility] [place] [address] DISCHARGE SUMMARY Name: IVONNE SARKAR Room #: 452-P [facility] IN M.R.#: [id number] Admission: 09/28/16 Attend Phys: Korina Abernathy Discharge: 10/06/16 Date of : 49 Report #: [id number] THIS REPORT FOR: //name// CC: Ruben Cummings FINAL DIAGNOSES: 1. Sepsis. 2. Healthcare-associated pneumonia related to pseudomonas. 3. Chronic hypoxic respiratory failure. 4. Cerebrovascular disease. 5. Atrial fibrillation. 6. Ventilator dependence. HOSPITAL COURSE: The patient was admitted with altered mental status and hypotension. He was treated for sepsis. Ultimately was diagnosed with pseudomonas pneumonia. He required pressors, fluids at first and then transferred out of ICU, then he had a hypoxic episode on the ventilator and he was transferred back to ICU. Followup x-ray revealed pulmonary edema and he was treated with Lasix. Follow up sputum continued to show pseudomonas. Heart rate was stable with Coreg and Cardizem and he was continued on Coumadin. He was started back on tube feeding. There are no plans to wean from the ventilator. PHYSICAL EXAMINATION: On the day of discharge: GENERAL: He was asleep on the event on 40% FIO2, heart rate was stable and he had stable vital signs. LUNGS: Clear. HEART: Irregular. ABDOMEN: Soft, normoactive bowel sounds. He was tolerating tube feeding. EXTREMITIES: Showed no edema. DISPOSITION: Return to his long-term ventilator unit at [facility] under the care of Dr. Cummings, n.p.o. status with tube feeding and water flushes. I signed his transfer medications. He will have lab work in 3 days with Coumadin monitoring included. He will have Zosyn for 10 days. <ELECTRONICALLY SIGNED> By: Soren Sawant MD 10/08/16 0749 0920 1910 Soren Sawant MD /nt
--- NOTE | ~2016-09-28 | HC ---
[facility] [address] CONSULTATION Name: IVONNE SARKAR Room #: 247-P ADM IN M.R.#: [id number] Admission: 09/28/16 Attend Phys: Korina Abernathy Discharge: Date of : 49 Report #: [id number] THIS REPORT FOR: //name// CC: Ruben Cummings DATE OF SERVICE: 09/28/2016 REASON FOR CONSULTATION: I was asked to evaluate concerning change in mental status, hypotension along with leukocytosis, pyuria, basilar infiltrates. HISTORY OF PRESENT ILLNESS: The patient was a 71-year-old with underlying history of atrial fibrillation, hypertension, COPD, stroke with dense left hemiparesis, respiratory failure, chronic ventilatory requirements and resides at [facility]. He has had several hospitalizations within the last year. Was in the Emergency Room for urinary tract infection first week of September. Now returns with decreased mental status, hypotension. The patient was unable to give any details. He does remain alert. He has a dense left hemiparesis. Tracheostomy remains intact. He is on 70% FIO2 on the ventilator. He has had no vomiting. He has a PEG tube in place. He has a peripheral IV that was placed this morning. He has an indwelling Maynard catheter. No diarrhea. He has a chronic wound to his left thigh that involves his left hip region. ALLERGIES: SULFA, ZURI INHIBITORS. MEDICATIONS: As noted on his MAR, having started Zosyn and Levaquin this morning. PAST MEDICAL HISTORY, FAMILY HISTORY, SOCIAL HISTORY: Unchanged from his previous consultation and his history and physical. REVIEW OF SYSTEMS: Noted above. PHYSICAL EXAMINATION: VITAL SIGNS: Temperature is 97.6 axillary, pulse 103, blood pressure 109/61, MAP of 76. He did drop his pressure down to 79/46 in the Emergency Room. He has had several liters of fluid resuscitation. GENERAL: He was awake. He has a dense left hemiparesis face, arm and leg. Tracheostomy was unremarkable on 70% FIO2. Moderately obese, large wound to the left upper lateral thigh and hip region. You can palpate the femur. granulation tissue and serous drainage. No surrounding cellulitis. LUNGS: Coarse in the posterior bases bilaterally. HEART: Regular, without murmur. ABDOMEN: Soft, obese, nontender. PEG site was unremarkable. No hepatosplenomegaly or mass appreciated. EXTREMITIES: Otherwise unremarkable. [facility] [address] [place] [address] CONSULTATION Name: IVONNE SARKAR Room #: 247-P ADM IN M.R.#: [id number] Admission: 09/28/16 Attend Phys: Korina Abernathy Discharge: Date of : 49 Report #: [id number] LABORATORY STUDIES: CT scan of the head shows mastoiditis changes, no change in his previous stroke. Chest x-ray, basilar atelectasis versus infiltrate, left greater than right. Hemoglobin 12.8, white count 15.9, platelet count 267,000 and 72% segs, 2% bands. INR 1.8. Sodium 154, potassium 4.8, bicarbonate of 37, creatinine 1. Urinalysis positive for wbc's, rbc's and bacteria. Blood, urine and sputum cultures are pending. cultures pending. IMPRESSION: A 71-year-old previous stroke and respiratory failure with sepsis. Etiology yet unclear if it is pulmonary versus urinary tract infection. I doubt other intra-abdominal infection. The left hip wound appears stable. PLAN: Recommend broad antibiotic coverage, pending cultures. Continue in ICU with full support at this time. <ELECTRONICALLY SIGNED> By: Jarred Cummings MD 09/29/16 0955 0845 1247 Jarred Cummings MD /nt
--- NOTE | ~2016-09-28 | 2DMMODE ---
[facility] [employer] [email or web address] [address] 2 D/M-MODE ECHOCARDIOGRAM Name: IVONNE SARKAR Room #: 237-P ADM IN M.R.#: [id number] Admission: 09/28/16 Attend Phys: Ruben Sargent Discharge: Date of : 49 Date of Service: 10/04/16 1454 Report #: [id number] THIS REPORT FOR: //name// APPROVED REPORT Study performed: 10/04/2016 13:26:50 EXAM: Limited 2D, Doppler, and color-flow Echocardiogram Patient Location: Bedside Room #: 237 Blood Pressure: 125/73 mmHg HR: 79 bpm Rhythm: Atrial Fibrillation Other Information Study Quality: Adequate Technically limited study due to inability to position patient and morbid obesity. exam done in ICU. Patient with trach.. Indications Limited echo for hypoxia. Rule out shunt. Hx: Afib, cardiomyopathy. (Complete echo done 07/31/16) Echo Enhancing Agent Indication: Rule out Shunt Agent/Amount Used: Agitated Saline 6 cc Tricuspid Valve TR Peak Jamal.: 2.81 m/s RAP Estimate: 15.00 mmHg TR Peak Gr.: 31.57 mmHg RVSP: 47.00 mmHg Left Ventricle Left ventricle is grossly normal size. Regional wall motion abnormalities are noted. Moderate concentric left ventricular hypertrophy. Left ventricular systolic function is mildly decreased. LVEF is 45%. Right Ventricle Right ventricle is dilated. Right ventricle is mildly hypokinetic. [facility] [address] [place] [address] 2 D/M-MODE ECHOCARDIOGRAM Name: IVONNE SARKAR Room #: 237-P ADM IN M.R.#: [id number] Admission: 09/28/16 Attend Phys: Ruben Sargent Discharge: Date of : 49 Date of Service: 10/04/16 1454 Report #: [id number] Left atrium is dilated. Injection of bubbles documented no interatrial shunt. Right atrium is dilated. Aortic Valve Aortic valve is calcified. Mild aortic regurgitation. Mitral Valve Mitral valve leaflets are thickened. Mild to moderate mitral regurgitation. Tricuspid Valve The tricuspid valve is normal in structure. There is mild to moderate tricuspid regurgitation. The right atrial pressure is estimated at 15 mmHg. There is moderate pulmonary hypertension with an estimated PAP of 47mmHg. Great Vessels IVC is dilated and collapses <50% with inspiration. Pericardium There is no pericardial effusion. <Conclusion> Left ventricle is grossly normal size. Regional wall motion abnormalities are noted. LVEF is 45%. Right ventricle is dilated. Right ventricle is mildly hypokinetic. Left atrium is dilated. Right atrium is dilated. Aortic valve is calcified. Mild aortic regurgitation. Mitral valve leaflets are thickened. Mild to moderate mitral regurgitation. The tricuspid valve is normal in structure. There is mild to moderate tricuspid regurgitation. The right atrial pressure is estimated at 15 mmHg. There is moderate pulmonary hypertension with an estimated PAP of 47mmHg. Injection of bubbles documented no interatrial shunt. <ELECTRONICALLY SIGNED> By: Raleigh Fermin MD 10/04/16 1454 1454 1454 Raleigh Fermin MD /INF
[~2016-09-28 03:11] MED LIST changes: +LEVAQUIN 750 M750 MG PO
[2016-09-28] MEDS ORDERED: ARGINAID POWDE1 EACH PER TUBE (03:32)
[2016-09-28] MEDS ORDERED: COUMADIN 5 MG TA5 M1 PER TUBE (03:36)
[2016-09-28 03:42] LABS: URINE BILIRUBIN NEGATIVE (Negative); URINE BLOOD 3+ (Negative); URINE COLOR YELLOW; URINE GLUCOSE-RANDOM* NEGATIVE (Negative); URINE KETONES NEGATIVE (Negative); URINE LEUKOCYTES-REFLEX 2+ (Negative); URINE PROTEIN (DIPSTICK) 2+ (Negative); URINE SPECIFIC GRAVITY 1.025 (1.003-1.035); URINE UROBILINOGEN 0.2 E.U./dl (0.2-1.0)
[2016-09-28 03:44] LABS: CASTS None Seen /LPF (None Seen); CRYSTALS None Seen /LPF (None Seen); HYALINE CASTS 4-10 Moderate /LPF (None Seen); SQUAMOUS None Seen /LPF (0-3); TRANSITIONAL EPITHEL CELL 0-3 Few /LPF (None Seen); URINE RBC >20 Many /HPF (0-2); URINE WBC-REFLEX >25 Many /HPF (0-5)
[2016-09-28 03:47] LABS: HEMOGLOBIN 12.8 gm/dL (14.0-18.0); MCH 30.7 pg (26.0-34.0); MCHC 31.9 g/dL (28.0-37.0); MCV 96.2 fL (80.0-100.0); PLATELET COUNT 267 thou/uL (150-400); RBC 4.16 mil/uL (4.50-6.00); RDW 16.2 % (10.5-14.5); WBC 15.9 thou/uL (4.0-11.0)
[2016-09-28 03:48] LABS: MANUAL DIFF YES
[2016-09-28 03:56] LABS: POTASSIUM 4.8 mmol/L (3.5-5.1)
[2016-09-28 04:09] LABS: APTT 27.6 Seconds (24.5-32.8); INR 1.8; PROTIME 18.3 Seconds (9.3-11.4)
[2016-09-28 04:23] LABS: ABSOLUTE NEUTROPHILS 11.8 thou/uL (1.4-8.2); ANISOCYTOSIS 1+; MYELOCYTES 1 %; TOTAL CELL COUNT 100
[2016-09-28 04:48] LABS: ABG SAMPLE TYPE ARTERIAL; BE(vivo) 8.1 mmol/L (-2 to +3); HCO3 35.4 mmol/L (22.0-26.0); LACTATE 1.88 mmol/L (0.5-2.0); O2(CT) 17.4 mL/dL (15.0-23.0); O2Hb 97.5 % (92.0-98.0); PO2 102.3 mmHg (80.0-100.0); pH 7.368 (7.360-7.450); sO2 97.3 % (92.0-98.0); tCO2 37.4 mmol/L (24.0-30.0)
[2016-09-28 04:49] LABS: STICK SITE R.RADIAL; TIDAL VOLUME 500 ml
[2016-09-28 04:50] LABS: ABG COMMENT AC RATE 14
[2016-09-28 17:41] LABS: CALCIUM 9.1 mg/dL (8.5-10.1); CREATININE 0.8 mg/dL (0.7-1.3)
[2016-09-28 21:45] LABS: ABG SAMPLE TYPE ARTERIAL; BE(vivo) 5.6 mmol/L (-2 to +3); HCO3 30.2 mmol/L (22.0-26.0); LACTATE 1.55 mmol/L (0.5-2.0); O2(CT) 15.4 mL/dL (15.0-23.0); O2Hb 90.5 % (92.0-98.0); PCO2 44.1 mmHg (35.0-45.0); PO2 57.1 mmHg (80.0-100.0); pH 7.453 (7.360-7.450); sO2 90.9 % (92.0-98.0); tCO2 31.5 mmol/L (24.0-30.0)
[2016-09-28 21:46] LABS: STICK SITE L.RADIAL; TIDAL VOLUME 500 ml
[2016-09-29] VITALS (43 sets, daily range): BP systolic 73–167; BP diastolic 42–107
[2016-09-29 05:19] LABS: HEMATOCRIT 34.9 % (42.0-52.0); HEMOGLOBIN 11.2 gm/dL (14.0-18.0); MCH 30.3 pg (26.0-34.0); MCHC 32.1 g/dL (28.0-37.0); MCV 94.4 fL (80.0-100.0); RBC 3.7 mil/uL (4.50-6.00); RDW 16.2 % (10.5-14.5); WBC 11.6 thou/uL (4.0-11.0)
[2016-09-29 05:28] LABS: CALCIUM 9.1 mg/dL (8.5-10.1); CREATININE 0.8 mg/dL (0.7-1.3); POTASSIUM 3.5 mmol/L (3.5-5.1)
[2016-09-29 05:31] LABS: INR 2.3; PROTIME 23.4 Seconds (9.3-11.4)
[2016-09-30 04:08] VITALS: BP 111/63
[2016-09-30 05:11] LABS: HEMATOCRIT 33.4 % (42.0-52.0); HEMOGLOBIN 10.9 gm/dL (14.0-18.0); MCH 30.8 pg (26.0-34.0); MCHC 32.7 g/dL (28.0-37.0); MCV 94.3 fL (80.0-100.0); RBC 3.54 mil/uL (4.50-6.00); RDW 16.2 % (10.5-14.5); WBC 9.4 thou/uL (4.0-11.0)
[2016-09-30 05:23] LABS: INR 3.1; PROTIME 32.3 Seconds (9.3-11.4)
[2016-09-30 05:35] LABS: CALCIUM 8.8 mg/dL (8.5-10.1); CREATININE 0.7 mg/dL (0.7-1.3); POTASSIUM 3.1 mmol/L (3.5-5.1)
[2016-09-30 07:29] VITALS: BP 110/70
[2016-09-30 11:41] VITALS: BP 136/72
[2016-09-30 16:39] VITALS: BP 141/71
[2016-09-30 19:11] VITALS: BP 117/74
[2016-10-01 03:14] VITALS: BP 93/56
[2016-10-01 06:32] LABS: INR 2.2; PROTIME 22.5 Seconds (9.3-11.4)
[2016-10-01 08:40] VITALS: BP 142/83
[2016-10-01 12:25] VITALS: BP 134/83
[2016-10-01 15:53] VITALS: BP 153/87
[2016-10-01 20:20] VITALS: BP 156/84
[2016-10-01 20:32] VITALS: BP 143/89
[2016-10-02 04:07] VITALS: BP 147/80
[2016-10-02 04:30] LABS: INR 2.3; PROTIME 24.1 Seconds (9.3-11.4)
[2016-10-02 07:26] VITALS: BP 101/56
[2016-10-02 11:30] VITALS: BP 138/81
[2016-10-02 13:48] LABS: HEMATOCRIT 32.5 % (42.0-52.0); HEMOGLOBIN 10.8 gm/dL (14.0-18.0); MCH 30.8 pg (26.0-34.0); MCHC 33.3 g/dL (28.0-37.0); MCV 92.5 fL (80.0-100.0); RBC 3.51 mil/uL (4.50-6.00); WBC 8.6 thou/uL (4.0-11.0)
[2016-10-02 13:59] LABS: CALCIUM 8.8 mg/dL (8.5-10.1); CREATININE 0.6 mg/dL (0.7-1.3); POTASSIUM 3.3 mmol/L (3.5-5.1)
[2016-10-02 15:37] VITALS: BP 130/86
[2016-10-02 19:43] VITALS: BP 143/94
[2016-10-03] VITALS (18 sets, daily range): BP systolic 101–145; BP diastolic 56–105
[2016-10-03 01:42] LABS: ABG SAMPLE TYPE ARTERIAL; BE(vivo) 8.8 mmol/L (-2 to +3); HCO3 35.2 mmol/L (22.0-26.0); LACTATE 1.93 mmol/L (0.5-2.0); O2(CT) 16.5 mL/dL (15.0-23.0); O2Hb 96.1 % (92.0-98.0); pH 7.408 (7.360-7.450); sO2 97.1 % (92.0-98.0); tCO2 36.9 mmol/L (24.0-30.0)
[2016-10-03 01:43] LABS: STICK SITE R.RADIAL; TIDAL VOLUME 500 ml
[2016-10-03 05:38] LABS: CALCIUM 8.9 mg/dL (8.5-10.1); CREATININE 0.7 mg/dL (0.7-1.3); POTASSIUM 3.2 mmol/L (3.5-5.1)
[2016-10-03 05:47] LABS: HEMATOCRIT 32.5 % (42.0-52.0); HEMOGLOBIN 10.8 gm/dL (14.0-18.0); MCH 30.6 pg (26.0-34.0); MCHC 33.4 g/dL (28.0-37.0); MCV 91.7 fL (80.0-100.0); RBC 3.54 mil/uL (4.50-6.00); WBC 10.8 thou/uL (4.0-11.0)
[2016-10-03 06:04] LABS: INR 1.7; PROTIME 17.9 Seconds (9.3-11.4)
[2016-10-04] VITALS (20 sets, daily range): BP systolic 106–143; BP diastolic 64–129
[2016-10-04 05:34] LABS: HEMATOCRIT 31.6 % (42.0-52.0); HEMOGLOBIN 10.4 gm/dL (14.0-18.0); MCH 30.6 pg (26.0-34.0); MCV 92.6 fL (80.0-100.0); RBC 3.41 mil/uL (4.50-6.00); RDW 16.2 % (10.5-14.5); WBC 9.2 thou/uL (4.0-11.0)
[2016-10-04 05:46] LABS: INR 1.6
[2016-10-04 05:47] LABS: CREATININE 0.6 mg/dL (0.7-1.3); POTASSIUM 3.2 mmol/L (3.5-5.1)
[2016-10-05 04:11] VITALS: BP 106/68
[2016-10-05 05:08] LABS: CALCIUM 8.8 mg/dL (8.5-10.1); CREATININE 0.7 mg/dL (0.7-1.3); POTASSIUM 3.8 mmol/L (3.5-5.1)
[2016-10-05 05:15] LABS: INR 1.6; PROTIME 16.4 Seconds (9.3-11.4)
[2016-10-05 08:59] VITALS: BP 132/76
[2016-10-05 13:05] VITALS: BP 124/87
[2016-10-05 16:40] VITALS: BP 136/85
[2016-10-05 19:40] VITALS: BP 134/77
[2016-10-06 00:01] VITALS: BP 127/84
[2016-10-06 00:30] VITALS: BP 125/76
[2016-10-06 04:00] VITALS: BP 137/89
[2016-10-06 05:04] LABS: ANION GAP < 0 mmol/L (7-16); BUN 25 mg/dL (7-18); CALCIUM 9.2 mg/dL (8.5-10.1); CHLORIDE 110 mmol/L (98-107); CO2 38 mmol/L (21-32); CREATININE 0.6 mg/dL (0.7-1.3); GLUCOSE 163 mg/dL (74-106); POTASSIUM 3.7 mmol/L (3.5-5.1); SODIUM 147 mmol/L (136-145)
[2016-10-06 05:17] LABS: INR 1.6; PROTIME 16.1 Seconds (9.3-11.4)
[2016-10-06 07:28] VITALS: BP 127/75
[2016-10-06] MEDS ORDERED: ZOSYN 4.5 GRAM4.5 GM IV (08:27)
[2016-10-06] MEDS ORDERED: HYDROCODONE-AP1 EAC6 PER TUBE (08:28)
[2016-10-06] MEDS ORDERED: LASIX 40 MG TAB40 M1 PER TUBE (08:28)
[2016-10-06] MEDS ORDERED: VANCO 1 GR1 GM/250 M IVPB (08:28)
[2016-10-06] MEDS ORDERED: POTASSIUM CHLO20 MEQ PO (08:29)
[2016-10-06 11:17] VITALS: BP 141/90
== END 2016-10-06 13:20 | DRG 870 ==
LOC: ER 03:11 → ICU 04:54 → EROBS 04:54 → ICU 05:32 → 4W 09-29 16:22 → ICU 10-03 01:23 → 4W 10-04 15:49
PROVIDERS: Emergency Medicine; Internal Medicine; Internal Medicine Geriatric Medicine; Internal Medicine Pulmonary Disease
PROC: 5A1955Z Respiratory Ventilation, Greater than 96 Consecutive Hours (ICD-10-PCS; principal; 2016-09-28)
PROC: B548ZZA Ultrasonography of Superior Vena Cava, Guidance (ICD-10-PCS; 2016-09-28)
PROC: 02HV33Z Insertion of Infusion Device into Superior Vena Cava, Percutaneous Approach (ICD-10-PCS; 2016-09-28)
DX: A41.9 Sepsis, unspecified organism (principal); R65.21 Severe sepsis with septic shock; J96.21 Acute and chronic respiratory failure with hypoxia; J96.22 Acute and chronic respiratory failure with hypercapnia; G93.40 Encephalopathy, unspecified; J15.1 Pneumonia due to Pseudomonas; L89.224 Pressure ulcer of left hip, stage 4; N39.0 Urinary tract infection, site not specified; E87.0 Hyperosmolality and hypernatremia; I69.951 Hemiplegia and hemiparesis following unspecified cerebrovascular disease affecting right dominant side; Z68.41 Body mass index [BMI] 40.0-44.9, adult; Z99.11 Dependence on respirator [ventilator] status; I10 Essential (primary) hypertension; E03.9 Hypothyroidism, unspecified; G47.33 Obstructive sleep apnea (adult) (pediatric); E11.9 Type 2 diabetes mellitus without complications; I48.2 Chronic atrial fibrillation; I95.9 Hypotension, unspecified; J44.9 Chronic obstructive pulmonary disease, unspecified; D63.8 Anemia in other chronic diseases classified elsewhere; N30.90 Cystitis, unspecified without hematuria; R19.7 Diarrhea, unspecified; B96.5 Pseudomonas (aeruginosa) (mallei) (pseudomallei) as the cause of diseases classified elsewhere; E66.01 Morbid (severe) obesity due to excess calories; I87.8 Other specified disorders of veins; L89.90 Pressure ulcer of unspecified site, unspecified stage; Z93.0 Tracheostomy status; Z79.01 Long term (current) use of anticoagulants; Z79.899 Other long term (current) drug therapy; Z88.2 Allergy status to sulfonamides; Z87.891 Personal history of nicotine dependence
CPT/HCPCS: 10045; 10047; 10078; 27000

== ENCOUNTER 2016-12-10 23:50 | Inpatient (IN) | payer OTHER ==
[~2016-12-10] VITALS: Ht 193 cm; Wt 149.3 kg
--- NOTE | ~2016-12-10 | D ---
[facility] [place] [address] DISCHARGE SUMMARY Name: IVONNE SARKAR Room #: 461-P [facility] IN M.R.#: [id number] Admission: 12/11/16 Attend Phys: Korina Abernathy Discharge: 12/13/16 Date of : 49 Report #: [id number] THIS REPORT FOR: //name// CC: Ruben Cummings FINAL DIAGNOSES: 1. Sepsis. 2. Paroxysmal atrial fibrillation. 3. Multidrug resistant pseudomonas, infection of the sputum and urine. 4. Chronic respiratory failure. 5. Ventilator dependent. 6. Decubitus stage 4 wound. 7. Anemia of chronic disease. 8. Cerebrovascular disease. 9. Chronic left hemiparesis. HOSPITAL COURSE: The patient was admitted with tachycardia and atrial fibrillation with rapid response on to help with his baseline atrial fibrillation. He was found to have a septic source and ultimately pseudomonas culture from the sputum, urine and wound culture, it was felt that an infection precipitated the rapid atrial fibrillation. He was watched in ICU and home medicines were continued. Heart rate stabilized and he was transferred up to the floor. Pulmonary and ID followed him. Ultimately, the plan was to continue IV antibiotics at his long-term care ventilator center. PHYSICAL EXAMINATION: GENERAL: On the day of discharge, he was awake and alert, in no distress. LUNGS: Clear. HEART: Regular, no murmur. ABDOMEN: Soft, normoactive bowel sounds. EXTREMITIES: No edema. Telemetry was showing atrial fibrillation with heart rate in the 60s. DISPOSITION: To be transferred back to [facility] facility under the care of Dr. Cummings, continued tube feeding, n.p.o. status, ventilator status, wound care. Antibiotics will be ordered by Dr. Jarred Cummings and I have spoken to him. I signed his other transfer medications and will continue Coumadin with INR monitoring. His poor prognosis with of recovery and high risk of recurrent cardiopulmonary events due to his underlying status. <ELECTRONICALLY SIGNED> By: Soren Sawant MD 12/18/16 1018 1329 1355 Soren Sawant MD /nt
--- NOTE | ~2016-12-10 | HC ---
[facility] [place] [address] CONSULTATION Name: IVONNE SARKAR Room #: 242-P [facility] IN M.R.#: [id number] Admission: 12/11/16 Attend Phys: Korina Abernathy Discharge: Date of : 49 Report #: [id number] THIS REPORT FOR: //name// CC: Ruben Cummings DATE OF SERVICE: 12/11/2016 CHIEF COMPLAINT: Left heel and left hip pressure ulceration. HISTORY OF PRESENT ILLNESS: This is a 71-year-old male patient who is admitted from a long-term care facility and is currently residing in the intensive care unit. He has a history of chronic respiratory failure, requiring tracheostomy and chronic ventilatory support. He was admitted with transient hypotension, tachycardia, and shortness of breath. He has a history of a left hip pressure ulceration and left heel ulcer. He has a history of left hemiparesis. I have been asked to see him with regard to wound care. ALLERGIES: To SULFA. MEDICATIONS: Include Levaquin, levothyroxine, Coumadin, morphine, vancomycin, piperacillin/tazobactam, lorazepam, diltiazem, albuterol, and fentanyl. SOCIAL HISTORY: The patient resides in a long-term care facility. No recent history of alcohol or tobacco use. FAMILY HISTORY: Unknown. REVIEW OF SYSTEMS: Unobtainable due to the patient being on a ventilator and is unable to answer most questions. PHYSICAL EXAMINATION: VITAL SIGNS: The patient's vital signs at this time include respiration of 18, pulse rate 88, blood pressure 129/61, and temperature 99.1. GENERAL: This is a chronically ill-appearing male patient who appears to be in minimal distress. HEENT: Normocephalic. NECK: Demonstrates tracheostomy in place. LUNGS: Diminished. HEART: Regular rhythm. ABDOMEN: Soft, nontender. PELVIC: Examination of the pelvic region demonstrates what appears to be a stage IV pressure ulceration to the left hip. This does tunnel very close to bone. The wound is relatively clean, although there is some yellow green drainage and some odor at this time. No eschar present. EXTREMITIES: Examination of lower extremities demonstrates 2-3+ edema. There is small eschar on the left medial heel, this is actually very tiny, almost [address] [address] CONSULTATION Name: IVONNE SARKAR Room #: 242-P ADM IN M.R.#: [id number] Admission: 12/11/16 Attend Phys: Korina Abernathy Discharge: Date of : 49 Report #: [id number] pinpoint in size and very superficial. Distal palpable pulses are difficult to palpate due to edema, but are palpable. CLINICAL IMPRESSION: 1. Stage IV pressure ulcer of the left hip. 2. Chronic respiratory failure requiring mechanical ventilation. 3. Protein-calorie malnutrition with albumin low at 2.3. RECOMMENDATIONS: At this point in time, we will recommend culture and sensitivity from the left hip ulcer. He is on a low air loss mattress, will need to be turned and repositioned using wedges to offload areas. There is no evidence of gluteal or sacral pressure ulcer , although he is certainly at high risk to develop such. We will recommend a 1/4 strength Dakin's moist gauze dressing b.i.d. to the left hip. Recommend protective boots to both lower extremities. Ongoing nutritional support. I appreciate being asked to see him in consultation. <ELECTRONICALLY SIGNED> By: Tray Huntley MD 12/12/16 0821 1825 1854 Tray Huntley MD /nt
--- NOTE | ~2016-12-10 | HC ---
[facility] [place] [address] CONSULTATION Name: IVONNE SARKAR Room #: 461-P [facility] IN M.R.#: [id number] Admission: 12/11/16 Attend Phys: Korina Abernathy Discharge: 12/13/16 Date of : 49 Report #: [id number] THIS REPORT FOR: //name// CC: Ruben Cummings DATE OF SERVICE: 12/11/2016 PRIMARY CARE PHYSICIAN: Ruben Cummings MD. REFERRAL PHYSICIAN: Dr. Sawant. REASON FOR CONSULTATION: Acute on chronic respiratory failure. HISTORY OF PRESENT ILLNESS: The patient is a 71-year-old white male who was brought to the Emergency Room due to complaints of shortness of breath and tachycardia. The patient also had complains of left leg pain, back pain. He was also found to be hypoxic. The patient normally resides at [facility]. He has been dependent due to his prior CVA. He has failed weaning in the past. Presently, he is resting comfortably. CT chest angiogram shows no evidence of pulmonary embolus, there is some evidence of infiltrates, more in the left lower lobe than the right. The patient was admitted. Much of the history is obtained from the records. The patient is not able to provide answers given his illness and prior tracheostomy. PAST MEDICAL HISTORY: As mentioned above including paroxysmal atrial fibrillation, hypothyroidism, hypertension, CVA, right middle cerebral artery, left hemiparesis resulting in chronic respiratory failure deemed to be ventilator dependent, morbid obesity and diabetes mellitus type 2. ALLERGIES: To SULFA, reactions unspecified. MEDICATION: Lists are reviewed in the MAR. Lasix, hydrocodone, potassium supplements, nebulized albuterol, Synthroid, Cardizem, Coumadin, Ativan. FAMILY HISTORY: Noncontributory. SOCIAL HISTORY: Unknown at this moment. He has been on a ventilator for the last 2 years in ventilator unit at the [facility]. REVIEW OF SYSTEMS: Deferred as the patient is unable to provide answers. PHYSICAL EXAMINATION: [facility] [address] [place] [address] CONSULTATION Name: IVONNE SARKAR Room #: 461-P [facility] IN M.R.#: [id number] Admission: 12/11/16 Attend Phys: Korina Abernathy Discharge: 12/13/16 Date of : 49 Report #: [id number] GENERAL: He is awake, alert, does not appear to be in distress. VITAL SIGNS: Temperature on admission was 101.9 degrees Fahrenheit, pulse is 85, respiratory rate is 16, blood pressure 100/61 mmHg, saturation 95%. HEENT: Normocephalic, atraumatic. NECK: Status post tracheostomy. CHEST: Breath sounds are coarse bilaterally. No obvious wheezes. CARDIOVASCULAR: Heart sounds are distant. No obvious murmurs or gallop. Pulses are 2+/4+ bilaterally. ABDOMEN: Obese, soft, nontender, no organomegaly or masses felt. PEG tube is noted in the mid upper quadrant. GENITOURINARY: Deferred. RECTAL: Deferred. EXTREMITIES: Notable for less than 1+ edema bilaterally. No cyanosis or clubbing. LABORATORY DATA: Portable chest x-ray and CT chest angiogram as mentioned above showing bilateral infiltrates, greater in the left lower lobe. Electrolytes are unremarkable except for bicarbonate of 35, creatinine 0.8. WBC is 15,100, hemoglobin is 11.5. Arterial blood gas revealed pH 7.45, pCO2 47, pO2 93 on FiO2 100%. IMPRESSION: 1. Acute on chronic hypercapnic hypoxic respiratory failure in this 71-year-old white male with multiple medical problems. He is febrile. His chest x-ray shows infiltrates. He has been previously treated for Pseudomonas pneumonia. Pneumonia is suspected, possible aspiration, nosocomial infection should also be considered. Venous thromboembolic disease appears to have ruled out. 2. Recent complains of left leg and back pain. We will need to monitor and follow. 3. Elevated troponin, may be related to stress demand. Recommend follow serial troponin. May need cardiac evaluation if continues to be abnormal. 4. Chronic hypercapnic hypoxic respiratory failure. In the past, the patient has exhibited profound hypoxia with increase in a-A gradient. Prior echocardiogram in the past did not show any evidence of atrial or ventricular septal defect. 5. , with left hemiparesis, chronic respiratory failure, ventilator dependent. 6. Generalized debility and weakness. 7. Paroxysmal atrial fibrillation with rapid ventricular response due to above process. 8. Suspect severe sepsis. 9. Chronic wound involving left gluteal area. RECOMMENDATION: Agree with broad spectrum antibiotics, we will continue mechanical ventilation. DVT and GI prophylaxis will be addressed. Wean O2 for [address] [address] CONSULTATION Name: IVONNE SARKAR Room #: 461-P DIS IN M.R.#: [id number] Admission: 12/11/16 Attend Phys: Korina Abernathy Discharge: 12/13/16 Date of : 49 Report #: [id number] saturation 90%. Thank you for this consultation. <ELECTRONICALLY SIGNED> By: Kev Mario MD 12/19/16 1518 1442 1523 Kev Mario MD /nt
--- NOTE | ~2016-12-10 | EKG ---
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1945 Requested By: Meeta Aldridge Order Number: [id number] MD: Nolberto Bansal Measurements Intervals [facility] Rate: 175 P: -35 FL: 100 QRS: 213 QRSD: 172 T: 46 QT: 288 QTc: 492 Interpretive Statements Wide-complex tachycardia, probably atrial flutter with one-to-one conduction Left anterior hemiblock Right bundle-branch block Compared to ECG 09/28/2016 03:15:02 2:1 AV block no longer present Electronically Signed On 12-13-2016 18:09:54 CDT by Nolberto Bansal [email or web address] <ELECTRONICALLY SIGNED> By: Nolberto Bansal MD, [facility] 12/13/16 1809 0002 0002 Nolberto Bansal MD, [facility] /EPI
--- NOTE | ~2016-12-10 | H ---
[facility] [place] [address] HISTORY AND PHYSICAL Name: IVONNE SARKAR Room #: 242-P ADM IN M.R.#: [id number] Admission: 12/11/16 Attend Phys: Korina Abernathy Discharge: Date of : 49 Report #: [id number] THIS REPORT FOR: //name// CC: Ruben Cummings DATE OF SERVICE: 12/11/2016 CHIEF COMPLAINT: Low blood pressure and high pulse. HISTORY OF PRESENT ILLNESS: The patient is a 71-year-old gentleman who is a chronic ventilator dependent from [facility], came to the Emergency Room with reports of shortness of breath and tachycardia. His O2 sat dropped into the 80s and they changed his vent settings up to 100% FiO2. His pulse was still in the mid 100s and he was hypotensive. Apparently, last week he was diagnosed with a UTI with a white count of 12 and placed on Keflex. He does have chronic left gluteal and back wounds that are being treated topically. He is ventilator dependent due to prior stroke and has failed weaning. He has chronic left hemiparesis and also has a trach and a PEG tube. 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 PAST SURGICAL HISTORY: Unknown. FAMILY HISTORY: Noncontributory. SOCIAL HISTORY: Unknown other than he has been living in the ventilator unit for almost 2 years or longer. ALLERGIES: SULFA. MEDICATIONS: Coreg, Keflex, Ativan, Coumadin, diltiazem, Levoxyl, albuterol. REVIEW OF SYSTEMS: He denies chest pain, abdominal pain, nausea, vomiting or pain of the extremities. OBJECTIVE: VITAL SIGNS: Temperature 37.4, pulse , respirations 17, blood pressure 105/65, O2 sat 99% on the ventilator. GENERAL: He was awake and alert and in no distress. HEAD AND NECK: Unremarkable. Trach in place. LUNGS: Clear anteriorly. HEART: Irregular. No murmur. [facility] [address] [place] [address] HISTORY AND PHYSICAL Name: IVONNE SARKAR Room #: 242-P ADM IN ..#: [id number] Admission: 12/11/16 Attend Phys: Korina Abernathy Discharge: Date of : 49 Report #: [id number] ABDOMEN: Obese, soft, normoactive bowel sounds. EXTREMITIES: 1+ edema. NEUROLOGIC: He has flaccid paralysis of the left. LABORATORY DATA: ABG was fairly stable. White count is 15. Urinalysis had white cells and bacteria. Creatinine 0.8. CT was negative for PE. ASSESSMENT: 1. Sepsis, likely urinary source. 2. Rapid atrial fibrillation due to the above. 3. Chronic ventilator dependent. 4. Chronic hypoxic respiratory failure. 5. Cerebrovascular disease. 6. Late effect stroke with chronic left hemiparesis. 7. Chronic left gluteal wound. PLAN: He is admitted to ICU. We will have Pulmonary and ID see him. Antibiotics have been ordered. Wound care to follow as well. <ELECTRONICALLY SIGNED> By: Soren Sawant MD 12/12/16 0814 0839 0900 Soren Sawant MD /nt
[~2016-12-10 23:50] MED LIST changes: +COUMADIN 5 MG TA5 M1 PER TUBE; +LASIX 40 MG TAB40 M1 PER TUBE; +POTASSIUM CHLO20 MEQ PO; +ZOSYN 4.5 GRAM4.5 GM IV
[2016-12-11] VITALS (19 sets, daily range): BP systolic 94–139; BP diastolic 52–79
[2016-12-11 00:46] LABS: HEMATOCRIT 34.5 % (42.0-52.0); HEMOGLOBIN 11.5 gm/dL (14.0-18.0); MCH 31.3 pg (26.0-34.0); MCHC 33.4 g/dL (28.0-37.0); MCV 93.7 fL (80.0-100.0); PLATELET COUNT 259 thou/uL (150-400); RBC 3.68 mil/uL (4.50-6.00); RDW 16.8 % (10.5-14.5); WBC 15.1 thou/uL (4.0-11.0)
[2016-12-11 00:48] LABS: MANUAL DIFF YES
[2016-12-11] MEDS ORDERED: LORAZEPAM 0.50.5 M1 PO (00:49)
[2016-12-11] MEDS ORDERED: KEFLEX500 MG PO (00:49)
[2016-12-11 00:53] LABS: ABG SAMPLE TYPE ARTERIAL; HCO3 32.8 mmol/L (22.0-26.0); PCO2 47.5 mmHg (35.0-45.0); PO2 93.2 mmHg (80.0-100.0); STICK SITE R.RADIAL; pH 7.457 (7.360-7.450)
[2016-12-11 00:53] LABS: CALCIUM 9.8 mg/dL (8.5-10.1); CREATININE 0.8 mg/dL (0.7-1.3); POTASSIUM 3.7 mmol/L (3.5-5.1)
[2016-12-11 00:54] LABS: BE(vivo) 7.8 mmol/L (-2 to +3); LACTATE 3.22 mmol/L (0.5-2.0); O2(CT) 17.1 mL/dL (15.0-23.0); O2Hb 96.8 % (92.0-98.0); tCO2 34.3 mmol/L (24.0-30.0)
[2016-12-11 00:55] LABS: FIO2 100 %; TIDAL VOLUME 650 ml; sO2 97.4 % (92.0-98.0)
[2016-12-11 00:56] LABS: ABG COMMENT A/C 16
[2016-12-11 01:10] LABS: TROPONIN-I 2.1 ng/mL (<0.04-0.07)
[2016-12-11 01:18] LABS: URINE BILIRUBIN NEGATIVE (Negative); URINE BLOOD 3+ (Negative); URINE COLOR YELLOW; URINE GLUCOSE-RANDOM* NEGATIVE (Negative); URINE KETONES NEGATIVE (Negative); URINE LEUKOCYTES-REFLEX 1+ (Negative); URINE PROTEIN (DIPSTICK) 3+ (Negative); URINE SPECIFIC GRAVITY >= 1.030 (1.003-1.035); URINE UROBILINOGEN 0.2 E.U./dl (0.2-1.0)
[2016-12-11 01:32] LABS: SQUAMOUS 0-3 Few /LPF (0-3)
[2016-12-11 01:33] LABS: CALCIUM OXALATE 0-3 Few /LPF (None Seen); HYALINE CASTS 0-3 Few /LPF (None Seen); URINE RBC >20 Many /HPF (0-2)
[2016-12-11 02:13] LABS: ABSOLUTE NEUTROPHILS 12.4 thou/uL (1.4-8.2); ANISOCYTOSIS 2+; MACROCYTES SLIGHT; METAMYELOCYTES 1 %; TOTAL CELL COUNT 100
[2016-12-11 02:14] LABS: LARGE PLATELETS OCCASIONAL
[2016-12-11 03:57] LABS: APTT 30.1 Seconds (24.5-32.8); INR 1.6; PROTIME 16.1 Seconds (9.3-11.4)
[2016-12-12 05:20] LABS: ABG SAMPLE TYPE ARTERIAL; BE(vivo) 6.3 mmol/L (-2 to +3); HCO3 31.5 mmol/L (22.0-26.0); LACTATE 1.49 mmol/L (0.5-2.0); O2(CT) 14.5 mL/dL (15.0-23.0); O2Hb 92.4 % (92.0-98.0); PCO2 48.2 mmHg (35.0-45.0); PO2 65.1 mmHg (80.0-100.0); pH 7.433 (7.360-7.450); sO2 93.2 % (92.0-98.0)
[2016-12-12 05:21] LABS: STICK SITE RRA; TIDAL VOLUME 650 ml
[2016-12-12 05:22] LABS: ABG COMMENT AC16 650 +5 80%
[2016-12-12 05:22] LABS: HEMOGLOBIN 10.1 gm/dL (14.0-18.0); MCH 31.4 pg (26.0-34.0); MCHC 33.6 g/dL (28.0-37.0); MCV 93.4 fL (80.0-100.0); RBC 3.22 mil/uL (4.50-6.00); RDW 16.6 % (10.5-14.5); WBC 9.2 thou/uL (4.0-11.0)
[2016-12-12 05:26] LABS: CREATININE 0.7 mg/dL (0.7-1.3); POTASSIUM 3.3 mmol/L (3.5-5.1)
[2016-12-12 05:30] LABS: INR 1.7; PROTIME 17.6 Seconds (9.3-11.4)
[2016-12-12 21:05] VITALS: BP 160/65
[2016-12-12 23:59] VITALS: BP 140/85
[2016-12-13 02:07] LABS: HEMATOCRIT 28.7 % (42.0-52.0); HEMOGLOBIN 9.7 gm/dL (14.0-18.0); MCH 31.6 pg (26.0-34.0); MCHC 33.9 g/dL (28.0-37.0); MCV 93.2 fL (80.0-100.0); RBC 3.08 mil/uL (4.50-6.00); RDW 16.7 % (10.5-14.5); WBC 8.2 thou/uL (4.0-11.0)
[2016-12-13 02:21] LABS: INR 1.8; PROTIME 18.4 Seconds (9.3-11.4)
[2016-12-13 02:22] LABS: CALCIUM 9.3 mg/dL (8.5-10.1); CREATININE 0.7 mg/dL (0.7-1.3); POTASSIUM 3.3 mmol/L (3.5-5.1)
[2016-12-13 05:27] VITALS: BP 140/85
[2016-12-13 08:58] VITALS: BP 141/80
[2016-12-13] MEDS ORDERED: LORAZEPAM 0.50.5 M1 PO (12:47)
[2016-12-13] MEDS ORDERED: HYDROCODONE-AP1 EAC6 PER TUBE (12:47)
[2016-12-13 13:00] VITALS: BP 120/88
[2016-12-13] MEDS ORDERED: MEROPENEM-500 MG/50 IVPB (13:15)
[2016-12-19] MEDS ORDERED: METHADOSE10 MG PO (11:24)
[2016-12-19] MEDS ORDERED: VANCOCIN 125 M125 M1 PO (11:26)
[2016-12-19] MEDS ORDERED: PREDNISONE 10 M10 MG PO (11:28)
[2016-12-19] MEDS ORDERED: COUMADIN 5 MG TA5 M1 PO (11:28)
[2016-12-19] MEDS ORDERED: SEROQUEL PO ×2 (11:31→11:34)
== END 2016-12-13 18:37 | DRG 871 ==
LOC: ER 23:50 → EROBS 12-11 02:50 → ICU 12-11 02:50 → 4W 12-12 18:22
PROVIDERS: Emergency Medicine; Internal Medicine Geriatric Medicine; Internal Medicine Pulmonary Disease
PROC: 5A1945Z Respiratory Ventilation, 24-96 Consecutive Hours (ICD-10-PCS; principal; 2016-12-11)
DX: A41.9 Sepsis, unspecified organism (principal); J96.21 Acute and chronic respiratory failure with hypoxia; J96.22 Acute and chronic respiratory failure with hypercapnia; L89.224 Pressure ulcer of left hip, stage 4; J15.6 Pneumonia due to other Gram-negative bacteria; J15.1 Pneumonia due to Pseudomonas; E46 Unspecified protein-calorie malnutrition; Z68.41 Body mass index [BMI] 40.0-44.9, adult; Z99.11 Dependence on respirator [ventilator] status; I69.954 Hemiplegia and hemiparesis following unspecified cerebrovascular disease affecting left non-dominant side; R65.20 Severe sepsis without septic shock; I48.0 Paroxysmal atrial fibrillation; E03.9 Hypothyroidism, unspecified; I10 Essential (primary) hypertension; E66.01 Morbid (severe) obesity due to excess calories; E11.9 Type 2 diabetes mellitus without complications; D63.8 Anemia in other chronic diseases classified elsewhere; I95.9 Hypotension, unspecified; G47.33 Obstructive sleep apnea (adult) (pediatric); F17.210 Nicotine dependence, cigarettes, uncomplicated; L89.899 Pressure ulcer of other site, unspecified stage; Z88.2 Allergy status to sulfonamides; Z87.01 Personal history of pneumonia (recurrent); Z93.0 Tracheostomy status; Z93.1 Gastrostomy status; Z88.8 Allergy status to other drugs, medicaments and biological substances; Z79.01 Long term (current) use of anticoagulants; Z79.899 Other long term (current) drug therapy
CPT/HCPCS: 10047; 10078

== ENCOUNTER 2016-12-17 03:51 | Inpatient (IN) | payer OTHER | END 2016-12-26 14:00 | DRG 870 | LOC: ER 03:51 → EROBS 05:50 → ICU 08:31 | PROC: 5A1955Z Respiratory Ventilation, Greater than 96 Consecutive Hours (ICD-10-PCS; principal; 2016-12-17) | PROC: 0BH17EZ Insertion of Endotracheal Airway into Trachea, Via Natural or Artificial Opening (ICD-10-PCS; 2016-12-17) | PROC: 0BJ08ZZ Inspection of Tracheobronchial Tree, Via Natural or Artificial Opening Endoscopic (ICD-10-PCS; 2016-12-19) | PROC: 02HV33Z Insertion of Infusion Device into Superior Vena Cava, Percutaneous Approach (ICD-10-PCS; 2016-12-20) | PROC: 0W9B3ZZ Drainage of Left Pleural Cavity, Percutaneous Approach (ICD-10-PCS; 2016-12-21) | DX: A41.9 Sepsis, unspecified organism (principal); J96.21 Acute and chronic respiratory failure with hypoxia; L89.224 Pressure ulcer of left hip, stage 4; J15.1 Pneumonia due to Pseudomonas; J96.22 Acute and chronic respiratory failure with hypercapnia; J98.11 Atelectasis; E46 Unspecified protein-calorie malnutrition; J90 Pleural effusion, not elsewhere classified; I69.351 Hemiplegia and hemiparesis following cerebral infarction affecting right dominant side; Z68.42 Body mass index [BMI] 45.0-49.9, adult; I10 Essential (primary) hypertension; E03.9 Hypothyroidism, unspecified; G47.33 Obstructive sleep apnea (adult) (pediatric); E66.01 Morbid (severe) obesity due to excess calories; E11.9 Type 2 diabetes mellitus without complications; I48.2 Chronic atrial fibrillation; J44.9 Chronic obstructive pulmonary disease, unspecified; L89.620 Pressure ulcer of left heel, unstageable; Z16.30 Resistance to unspecified antimicrobial drugs; Z79.899 Other long term (current) drug therapy; Z88.8 Allergy status to other drugs, medicaments and biological substances; Z88.2 Allergy status to sulfonamides; Z87.891 Personal history of nicotine dependence; Z93.0 Tracheostomy status; Z87.440 Personal history of urinary (tract) infections ==

== ENCOUNTER 2016-12-30 22:46 | Inpatient (IN) | payer OTHER ==
[~2016-12-30] VITALS: Ht 182.9 cm; Wt 156.2 kg
--- NOTE | ~2016-12-30 | HC ---
[facility] [place] [address] CONSULTATION Name: IVONNE SARKAR Room #: 238-P ADM IN M.R.#: [id number] Admission: 12/31/16 Attend Phys: Korina Abernathy Discharge: Date of : 49 Report #: [id number] THIS REPORT FOR: //name// CC: Santiago Cummings DATE OF SERVICE: 01/01/2017 DATE OF SERVICE: 01/01/2017 PERSONAL PHYSICIAN: Dr. Soren Sawant. CHIEF COMPLAINTS: Respiratory failure. HISTORY OF PRESENT ILLNESS: This is an elderly white male who we have been following off and on at [facility] as well as [facility] snf acute care facility secondary to a stage 4 decubitus ulcer in his left lateral thigh region. The patient is currently back in the hospital for ventilatory support. The patient is also unable to any history whatsoever. PAST MEDICAL HISTORY: Significant for previous CVA with dense hemiparesis, ventilatory dependent and a stage 4 ulceration on his left hip. CURRENT MEDICATIONS: Reviewed. ALLERGIES: ZURI INHIBITORS AND SULFA. FAMILY HISTORY: Unobtainable because of the patient's medical condition. SOCIAL HISTORY: Unobtainable because of the patient's medical condition. REVIEW OF SYSTEMS: Unobtainable because of the patient's medical condition. PHYSICAL EXAMINATION: VITAL SIGNS: Stable. The patient is afebrile. GENERAL: This is an awake, but not alert white male who is in no obvious distress. HEENT: Normocephalic, atraumatic. Mucous membranes are somewhat dry. Pupils are round. NECK: Tracheostomy is in place without excoriation. LUNGS: Diminished breath sounds heard throughout with occasional scattered wheeze heard throughout. HEART: Regular, without murmur. ABDOMEN: Obese, soft, nontender. EXTREMITIES: Evaluation of left lateral thigh reveals a stage 4 ulceration with exposed bone and, what appears to be, greater trochanter, ____ is clean and [address] [address] CONSULTATION Name: IVONNE SARKAR Room #: 238-P ADM IN .R.#: [id number] Admission: 12/31/16 Attend Phys: Korina Abernathy Discharge: Date of : 49 Report #: [id number] granulating without any significant odor. There is serosanguineous drainage noted. ____ ulcer itself is otherwise intact without erythema, warmth or signs of cellulitis and no significant tunneling, tracking or undermining. EXTREMITIES: The patient has minimal movement of the extremities. Bilateral heels are intact. NEUROLOGIC: Cranial nerves 2-12 are grossly intact. Motor and sensory, the patient has dense hemiparesis. LABORATORY DATA: White count 12.6, hemoglobin 11.7, BUN 51, creatinine 1.0. Albumin low at 2.4. IMPRESSION: 1. Chronic stage 4 decubitus ulcer, left lateral thigh involving the greater trochanter, which is chronic. 2. Chronic respiratory failure requiring ventilatory support. 3. History of cerebrovascular accident with dense hemiparesis. 4. Protein-calorie malnutrition -- severe with albumin of 2.4. 5. Generalized debility. PLAN: At this time, we will continue with Dakin's wet to dry dressings to the left hip wound, cover with ABD twice daily. The patient will be place on a low air loss mattress and will be turned every 2 hours. Continue nutritional support for healing via PEG tube. We will continue all his other current medications at this time. We will continue to follow the patient. By: 1828 02 Walker Rehman MD /nt
--- NOTE | ~2016-12-30 | HC ---
[facility] [place] [address] CONSULTATION Name: IVONNE SARKAR Room #: 238-P ADM IN M.R.#: [id number] Admission: 12/31/16 Attend Phys: Korina Abernathy Discharge: Date of : 49 Report #: [id number] THIS REPORT FOR: //name// CC: Santiago Cummings DATE OF SERVICE: 12/31/2016 ATTENDING PHYSICIAN: Boaz Cummings M.D. REASON FOR CONSULTATION: Question aspiration pneumonia. HISTORY OF PRESENT ILLNESS: A 71-year-old white man residing at [facility], found to be in respiratory arrest despite being on mechanical ventilator. He undergoes CPR, transferred to [facility] Emergency Room, admitted to the intensive care unit. The patient with eyes closed and he actually resists my examining his pupils. Consequently, I surmised he is awake. All information on this patient is gathered from the review of records. PAST MEDICAL HISTORY: Chronic tracheostomy, ventilator dependent; obesity; hypertension; hypothyroidism; history of multiple drug-resistant Pseudomonas aeruginosa, lower respiratory tract; left hemiparesis secondary to right CVA; diabetes mellitus; sacral decubitus, stage 4. DRUG ALLERGIES: SULFA AND ZURI INHIBITORS. MEDICATIONS: [facility] on treatment with colistimethate 150 mg inhalation treatments t.i.d., albuterol, lactulose, prednisone 10 mg daily, furosemide, famotidine, levothyroxine; ____ mg every day for 7 days, started on December 26; carvedilol; diltiazem; Zosyn 3.375 grams every 6 hours, started on December 27 as well as warfarin. Here at the hospital, the patient is on treatment with ____ mg IV every other day, warfarin 5 mg daily, famotidine 20 mg daily per feeding tube, carvedilol 3.25 mg per feeding tube b.i.d., levothyroxine 112 mcg daily, ____ inhalation treatments t.i.d., methylprednisolone 40 mg IV every 12 hours, received single dose of Zosyn 4.5 grams IV earlier today. SOCIAL HISTORY: Unable to obtain; see old records. FAMILY HISTORY: Unable to obtain; see old records. REVIEW OF SYSTEMS: Unable to obtain. PHYSICAL EXAMINATION: GENERAL: Morbidly obese white man, on ventilator, chronic tracheostomy, afebrile. [facility] [address] [place] [address] CONSULTATION Name: IVONNE SARKAR Room #: 238-P [facility] IN .R.#: [id number] Admission: 12/31/16 Attend Phys: Korina Abernathy Discharge: Date of : 49 Report #: [id number] VITAL SIGNS: As follows: Temperature 98.7, pulse 89, respirations 20, BP 98/58. HEENMT: Head normocephalic, atraumatic. Pupils unable to examine, the patient actually resists my opening his eyelids. Mouth unable to examine. NECK: Chronic tracheostomy. LUNGS: Few rhonchi. HEART: S1, S2. No gallop. ABDOMEN: Obese, soft, no masses or megaly. GENITALIA AND RECTAL: Deferred. Maynard catheter in place. BACK: Deferred. Pictures of decubitus noted. EXTREMITIES: Reveal stasis dermatitis, black hyperpigmentation, legs edematous. NEUROLOGIC: Unable to evaluate. LABORATORY DATA: Sodium 139, potassium 4.9, CO2 of 40, BUN 39, creatinine 0.9, glucose 164, SGPT 79, albumin 2.4, lactic acid either canceled or not received. Troponin 1.48. NT-proBNP 1586. Protime 15.1. WBC on admission 23,200; hemoglobin 12.2. Repeat CBC today white blood cell count 18,000; hemoglobin 11.3; platelets 250,000. White blood cell count differential yesterday revealed 92% neutrophils; differential pending today. Urinalysis pending. ABGs reveal pH 7.46, pCO2 of 51, pO2 of 190, bicarbonate 35, lactate 2.3, O2 saturation 99.4 on FiO2 of 100%, tidal volume 500 and 8 of PEEP. MICROBIOLOGY DATA: Sputum pending. Blood cultures pending. On December 19, his sputum culture revealed Providencia stuartii and Pseudomonas aeruginosa. Providencia sensitive to amikacin, aztreonam, ceftazidime, ceftriaxone, imipenem, Zosyn. Pseudomonas sensitive to amikacin and tobramycin. No sensitivity given for Zerbaxa or Avycaz. RADIOLOGY EVALUATION: Chest x-ray: Tracheostomy, cardiomegaly, hazy infiltrate, edema right lung? improved compared to previously. DICTATION ENDS HERE <ELECTRONICALLY SIGNED> By: Loyd Mendoza MD 01/01/17 0943 0629 0909 Loyd Mendoza MD /nt
--- NOTE | ~2016-12-30 | EKG ---
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1945 Requested By: Santiago Winston Order Number: [id number] MD: Nolberto Bansal Measurements Intervals [place] Rate: 70 P: CA: QRS: -48 QRSD: 182 T: 9 QT: 463 QTc: 500 Interpretive Statements Atrial fibrillation RBBB and LAFB Compared to ECG 12/17/2016 03:59:28 No significant change was found Electronically Signed On 12-31-2016 13:56:44 CDT by Nolberto Bansal [email or web address] <ELECTRONICALLY SIGNED> By: Nolberto Bansal MD, [facility] 12/31/16 1356 0758 0758 Nolberto Bansal MD, [facility] /EPI
--- NOTE | ~2016-12-30 | H ---
[facility] [place] [address] HISTORY AND PHYSICAL Name: IVONNE SARKAR Room #: 238-P ADM IN M.R.#: [id number] Admission: 12/31/16 Attend Phys: Korina Abernathy Discharge: Date of : 49 Report #: [id number] THIS REPORT FOR: //name// CC: Santiago Cummings DATE OF SERVICE: 12/31/2016 A 71-year-old male [facility] HISTORY OF PRESENT ILLNESS: This is a patient who has been managing now for the last year or so with massive stroke with dense hemiparesis, ventilatory dependent, stage IV sacral wound, who has had repeated episodes of infection as one might expect. He apparently had a respiratory failure event and was sent back here and subsequently admitted. There is no history from the patient. PAST MEDICAL HISTORY: Significant mainly for those findings in the HPI. MEDICATION: List is well documented. FAMILY HISTORY, SOCIAL HISTORY, REVIEW OF SYSTEMS: Not obtainable, but I can tell you that the patient's family still wishes a more aggressive approach in what appears to me to be a terminal situation. PHYSICAL EXAMINATION: GENERAL: Shows him to be lying in bed. He is on the vent. He is in no distress. HEENT: Otherwise, negative. CHEST: Coarse. CARDIOVASCULAR: Showed irregular rhythm. ABDOMEN: Nontender. PEG tube was in place. NEUROLOGIC: Dense hemiparesis was noted. ASSESSMENT AND PLAN: This is a patient with recurrent sepsis who in my opinion is in the terminal phases of his illness. We will do the best we can in what I consider to be a hospice care situation and we should consider terminal event. By: 0834 2059 Ruben Cummings MD /
[~2016-12-30 22:46] MED LIST changes: +ACETYLCYST200 MG/1 M INH; +CARDIZEM30 MG PER TUBE; +CARVEDILOL3.125 MG PO; +COLISTIMETHATE150 MG INH; +COUMADIN 5 MG TA5 M1 PO; +KEFLEX500 MG PO; +LACTULOSE10 GM/153 PER TUBE; +LORAZEPAM 0.50.5 M1 PO; +LORAZEPAM 1 MG T1 M1 PO; +MEROPENEM-500 MG/50 IVPB; +METHADOSE10 MG PO; +MSL20MG/ML PER TUBE; +PREDNISONE 10 M10 MG PO; +SEROQUEL PO; +TOBRAMYCIN60 MG/50 M IV; +VANCOCIN 125 M125 M1 PO; +ZERBAXA 1-0.51.5 GM IV
[2016-12-30 22:48] VITALS: BP 103/61
[2016-12-30 23:01] LABS: HEMATOCRIT 37.9 % (42.0-52.0); HEMOGLOBIN 12.2 gm/dL (14.0-18.0); MCH 30.6 pg (26.0-34.0); MCHC 32.3 g/dL (28.0-37.0); MCV 94.6 fL (80.0-100.0); PLATELET COUNT 314 thou/uL (150-400); RDW 17.6 % (10.5-14.5); WBC 23.2 thou/uL (4.0-11.0)
[2016-12-30 23:05] LABS: MANUAL DIFF YES
[2016-12-30 23:11] LABS: CREATININE 0.9 mg/dL (0.7-1.3); POTASSIUM 4.8 mmol/L (3.5-5.1)
[2016-12-30 23:20] LABS: INR 1.5; PROTIME 15.1 Seconds (9.3-11.4)
[2016-12-30 23:29] LABS: ABSOLUTE NEUTROPHILS 21.3 thou/uL (1.4-8.2); ANISOCYTOSIS 1+; MYELOCYTES 1 %; TOTAL CELL COUNT 100
[2016-12-30 23:33] LABS: ABG COMMENT A/C 20; ABG SAMPLE TYPE ARTERIAL; BE(vivo) 9.1 mmol/L (-2 to +3); HCO3 35.3 mmol/L (22.0-26.0); LACTATE 3.39 mmol/L (0.5-2.0); O2(CT) 18.3 mL/dL (15.0-23.0); O2Hb 97.6 % (92.0-98.0); PCO2 55.1 mmHg (35.0-45.0); PO2 129.6 mmHg (80.0-100.0); STICK SITE R.RADIAL; TIDAL VOLUME 500 ml; pH 7.425 (7.360-7.450); sO2 98.6 % (92.0-98.0)
[2016-12-31] VITALS (79 sets, daily range): BP systolic 76–268; BP diastolic 50–224
[2016-12-31 05:04] LABS: HEMATOCRIT 34.8 % (42.0-52.0); HEMOGLOBIN 11.3 gm/dL (14.0-18.0); MCH 30.7 pg (26.0-34.0); MCHC 32.6 g/dL (28.0-37.0); MCV 94.3 fL (80.0-100.0); PLATELET COUNT 250 thou/uL (150-400); RBC 3.69 mil/uL (4.50-6.00); RDW 17.6 % (10.5-14.5)
[2016-12-31 05:10] LABS: MANUAL DIFF YES
[2016-12-31 05:15] LABS: ABG COMMENT AC20 500 +8 100%; ABG SAMPLE TYPE ARTERIAL; BE(vivo) 10.4 mmol/L (-2 to +3); HCO3 35.9 mmol/L (22.0-26.0); O2(CT) 17.4 mL/dL (15.0-23.0); O2Hb 98.8 % (92.0-98.0); PCO2 51.6 mmHg (35.0-45.0); PO2 190.9 mmHg (80.0-100.0); STICK SITE RRA; TIDAL VOLUME 500 ml; sO2 99.4 % (92.0-98.0); tCO2 37.5 mmol/L (24.0-30.0)
[2016-12-31 05:26] LABS: ALBUMIN 2.4 g/dL (3.4-5.0); CALCIUM 8.9 mg/dL (8.5-10.1); CREATININE 0.9 mg/dL (0.7-1.3); POTASSIUM 4.9 mmol/L (3.5-5.1); TOTAL BILIRUBIN 0.5 mg/dL (<0.1-1.0); TOTAL PROTEIN 6.8 g/dL (6.4-8.2)
[2016-12-31 07:21] LABS: ABSOLUTE NEUTROPHILS 16.4 thou/uL (1.4-8.2); PLATELET ESTIMATE NORMAL; TOTAL CELL COUNT 100
[2017-01-01] VITALS (19 sets, daily range): BP systolic 105–166; BP diastolic 70–104
[2017-01-01 05:16] LABS: HEMATOCRIT 35.5 % (42.0-52.0); HEMOGLOBIN 11.7 gm/dL (14.0-18.0); MANUAL DIFF YES; MCH 30.7 pg (26.0-34.0); MCHC 32.9 g/dL (28.0-37.0); MCV 93.5 fL (80.0-100.0); PLATELET COUNT 255 thou/uL (150-400); RDW 17.5 % (10.5-14.5); WBC 12.6 thou/uL (4.0-11.0)
[2017-01-01 05:18] LABS: ABG SAMPLE TYPE ARTERIAL; HCO3 35.7 mmol/L (22.0-26.0); LACTATE 2.13 mmol/L (0.5-2.0); O2(CT) 17.4 mL/dL (15.0-23.0); O2Hb 95.5 % (92.0-98.0); PCO2 47.4 mmHg (35.0-45.0); PO2 79.5 mmHg (80.0-100.0); STICK SITE RRA; TIDAL VOLUME 500 ml; pH 7.495 (7.360-7.450); sO2 96.5 % (92.0-98.0); tCO2 37.2 mmol/L (24.0-30.0)
[2017-01-01 05:19] LABS: ABG COMMENT AC20 500 +8 70%
[2017-01-01 05:34] LABS: CALCIUM 9.2 mg/dL (8.5-10.1); MAGNESIUM 2.4 mg/dL (1.8-2.4); POTASSIUM 4.6 mmol/L (3.5-5.1)
[2017-01-01 08:20] LABS: ABSOLUTE NEUTROPHILS 11.6 thou/uL (1.4-8.2); ANISOCYTOSIS 1+; METAMYELOCYTES 1 %; TOTAL CELL COUNT 100
[2017-01-02] VITALS (17 sets, daily range): BP systolic 98–143; BP diastolic 71–101
[2017-01-02 05:18] LABS: HEMATOCRIT 36.4 % (42.0-52.0); HEMOGLOBIN 11.7 gm/dL (14.0-18.0); MCH 30.3 pg (26.0-34.0); MCHC 32.2 g/dL (28.0-37.0); MCV 94.1 fL (80.0-100.0); RBC 3.87 mil/uL (4.50-6.00); RDW 17.6 % (10.5-14.5); WBC 13.1 thou/uL (4.0-11.0)
[2017-01-02 05:21] LABS: CALCIUM 9.3 mg/dL (8.5-10.1); POTASSIUM 4.4 mmol/L (3.5-5.1)
[2017-01-02 05:25] LABS: INR 2.5; PROTIME 24.4 Seconds (9.3-11.4)
[2017-01-02 05:46] LABS: ABG SAMPLE TYPE ARTERIAL; BE(vivo) 6.9 mmol/L (-2 to +3); HCO3 31.6 mmol/L (22.0-26.0); LACTATE 2.73 mmol/L (0.5-2.0); O2(CT) 21.2 mL/dL (15.0-23.0); O2Hb 97.4 % (92.0-98.0); PCO2 44.8 mmHg (35.0-45.0); PO2 107.6 mmHg (80.0-100.0); pH 7.466 (7.360-7.450); sO2 98.1 % (92.0-98.0)
[2017-01-02 05:47] LABS: STICK SITE R.BRACHIAL; TIDAL VOLUME 500 ml
[2017-01-03] VITALS (19 sets, daily range): BP systolic 122–163; BP diastolic 64–111
[2017-01-03 05:26] LABS: HEMATOCRIT 34.3 % (42.0-52.0); HEMOGLOBIN 11.2 gm/dL (14.0-18.0); MCH 30.7 pg (26.0-34.0); MCHC 32.7 g/dL (28.0-37.0); MCV 93.9 fL (80.0-100.0); RBC 3.65 mil/uL (4.50-6.00); RDW 17.5 % (10.5-14.5); WBC 11.6 thou/uL (4.0-11.0)
[2017-01-03 05:38] LABS: CALCIUM 9.2 mg/dL (8.5-10.1); CREATININE 0.9 mg/dL (0.7-1.3); POTASSIUM 4.1 mmol/L (3.5-5.1)
[2017-01-03 05:41] LABS: PROTIME 23.3 Seconds (9.3-11.4)
[2017-01-03 05:58] LABS: INR 2.3
[2017-01-04 05:31] VITALS: BP 121/75
[2017-01-04 07:13] VITALS: BP 140/60
[2017-01-04 13:03] VITALS: BP 129/92
[2017-01-04 16:09] VITALS: BP 154/100
[2017-01-04 20:35] VITALS: BP 146/108
[2017-01-04 20:45] VITALS: BP 156/90
[2017-01-05 05:25] VITALS: BP 151/107
[2017-01-05 05:54] LABS: HEMATOCRIT 37.4 % (42.0-52.0); HEMOGLOBIN 11.9 gm/dL (14.0-18.0); MCH 30.2 pg (26.0-34.0); MCHC 31.7 g/dL (28.0-37.0); MCV 95.1 fL (80.0-100.0); RBC 3.94 mil/uL (4.50-6.00); RDW 17.7 % (10.5-14.5); WBC 16.9 thou/uL (4.0-11.0)
[2017-01-05 06:06] LABS: CALCIUM 9.4 mg/dL (8.5-10.1); CREATININE 0.9 mg/dL (0.7-1.3); POTASSIUM 3.4 mmol/L (3.5-5.1)
[2017-01-05 06:08] LABS: INR 2.4; PROTIME 24.7 Seconds (9.3-11.4)
[2017-01-05 08:03] VITALS: BP 146/89
[2017-01-05] MEDS ORDERED: TOBRAMYCIN60 MG/50 M IV (09:46)
[2017-01-05] MEDS ORDERED: ZERBAXA 1-0.51.5 GM IV (09:46)
[2017-01-05] MEDS ORDERED: ACCUNEB SO1.25 MG/1 INH (09:47)
[2017-01-05] MEDS ORDERED: ATIVAN0.5 MG PO (09:48)
[2017-01-05] MEDS ORDERED: SOLU-MEDRO125 MG/24 IV PUSH (09:48)
[2017-01-05 11:41] VITALS: BP 130/90
== END 2017-01-05 15:53 | DRG 870 ==
LOC: ER 22:46 → EROBS 12-31 00:22 → ICU 12-31 00:22 → 4W 12-31 00:22 → ICU 12-31 01:29 → 4W 01-03 19:10
PROVIDERS: Emergency Medicine; Internal Medicine Geriatric Medicine; Internal Medicine Pulmonary Disease
PROC: 0BH17EZ Insertion of Endotracheal Airway into Trachea, Via Natural or Artificial Opening (ICD-10-PCS; principal; 2016-12-31)
PROC: 5A1955Z Respiratory Ventilation, Greater than 96 Consecutive Hours (ICD-10-PCS; principal; 2016-12-31)
DX: A41.9 Sepsis, unspecified organism (principal); E43 Unspecified severe protein-calorie malnutrition; J96.22 Acute and chronic respiratory failure with hypercapnia; J15.1 Pneumonia due to Pseudomonas; L89.224 Pressure ulcer of left hip, stage 4; J96.21 Acute and chronic respiratory failure with hypoxia; J98.11 Atelectasis; J90 Pleural effusion, not elsewhere classified; I69.354 Hemiplegia and hemiparesis following cerebral infarction affecting left non-dominant side; Z68.42 Body mass index [BMI] 45.0-49.9, adult; I10 Essential (primary) hypertension; E03.9 Hypothyroidism, unspecified; G47.33 Obstructive sleep apnea (adult) (pediatric); E11.9 Type 2 diabetes mellitus without complications; E66.01 Morbid (severe) obesity due to excess calories; I48.2 Chronic atrial fibrillation; R65.20 Severe sepsis without septic shock; Z16.30 Resistance to unspecified antimicrobial drugs; Z79.899 Other long term (current) drug therapy; Z88.2 Allergy status to sulfonamides; Z88.8 Allergy status to other drugs, medicaments and biological substances; Z87.891 Personal history of nicotine dependence; Z93.0 Tracheostomy status
CPT/HCPCS: 10045; 10078

== ENCOUNTER 2017-06-04 00:01 | Inpatient (IN) | payer OTHER ==
[~2017-06-04] VITALS: Ht 193 cm; Wt 153.3 kg
[2017-06-04] VITALS (29 sets, daily range): BP systolic 81–189; BP diastolic 48–111
--- NOTE | ~2017-06-04 | HC ---
[facility] [place] [address] CONSULTATION Name: IVONNE SARKAR Room #: 247-P [facility] IN M.R.#: [id number] Admission: 06/04/17 Attend Phys: Korina Abernathy Discharge: Date of : 49 Report #: [id number] THIS REPORT FOR: //name// CC: Ruben Caceres DATE OF SERVICE: 06/04/2017 REFERRING PROVIDER: Soren Sawant MD. REASON FOR CONSULTATION: Respiratory failure. CHIEF COMPLAINT: Shortness of breath and hypoxemia. HISTORY OF PRESENT ILLNESS: Our group was asked emergently to see the patient in consultation while hospitalized at [facility]. He is a 72-year-old male with a history of respiratory failure, has been in the long-term care side of [facility] chronic ventilator facility. The patient had episode last night, became desaturated, presented to the Emergency Department, was thought to have congestive heart failure, mildly elevated troponin, underwent diuresis; however, had a second episode again later this morning, just recently finished some antibiotics for healthcare-associated pneumonia. No fever or chills. The chest x-ray and CT scan of the chest subsequently showed no pulmonary embolism, but left lower lobe atelectasis and probable mucus plugging. The patient is awake on mechanical inventory support, no distress. ALLERGIES: INCLUDE ZURI INHIBITORS AND SULFA. PAST MEDICAL HISTORY: 1. History of respiratory failure. 2. History of cerebrovascular accident with left hemiparesis. 3. Hypertension. 4. Hypothyroidism. 5. Prior MRSA infection. 6. Prior multidrug resistant pseudomonas infection. 7. Diabetes mellitus type 2. 8. Permanent atrial fibrillation. 9. Chronic respiratory failure. OUTPATIENT MEDICATIONS: Include Lasix, tobramycin, ceftolozane/tazobactam, albuterol, lorazepam, Solu-Medrol, colistimethate, carvedilol, diltiazem, lactulose, Mucomyst and Pepcid. SOCIAL HISTORY: The patient is an ex-smoker. No alcohol consumption, currently resides at [address] [address] CONSULTATION Name: IVONNE SARKAR Room #: 247-P [facility] IN [facility]#: [id number] Admission: 06/04/17 Attend Phys: Korina Abernathy Discharge: Date of : 49 Report #: [id number] FAMILY HISTORY: Unobtainable. REVIEW OF SYSTEMS: Otherwise, unobtainable due to his current status. PHYSICAL EXAMINATION: VITAL SIGNS: Afebrile, pulse in the 90s, respiratory rate of 16, blood pressure 100/62. GENERAL: This is an obese elderly male, awake, no distress. ENT: [place] Tight to Shaft trach in place. NECK: Supple, no lymphadenopathy. LUNGS: Diminished, some coarse breath sounds noted. CARDIOVASCULAR: Heart was regular. No murmurs noted. ABDOMEN: Soft, obese. No masses. EXTREMITIES: 1+ edema. LABORATORY DATA: White blood cell count 13,000, hemoglobin 11, hematocrit platelet count 313. Sodium 139, potassium 3.7, chloride 96, bicarbonate 39, BUN 40, creatinine 0.8, glucose 135. Troponin 1.54. Arterial blood gas overnight on assist control, tidal volume of 600, rate of 16, PEEP of 10, FiO2 100% revealed pH 7.44, pCO2 of 59, pO2 105, bicarbonate 39. IMAGING STUDIES: As described in HPI. IMPRESSION: 1. History of multidrug resistant pneumonia. 2. Left lower lobe infiltrate, appears to be mucus plugging. 3. Acute on chronic hypoxemic and hypercapnic respiratory failure. 4. Chronic trach. 5. Elevated troponin. 6. Diabetes mellitus type 2. 7. History of prior stroke with apparent left-sided weakness. 8. Cardiomyopathy, ejection fraction of 30-35%. SUGGESTIONS: 1. Continue with current antibiotics. Consider Infectious Disease consult to assist given prior resistant pathogens. 2. We will perform fiberoptic bronchoscopy at bedside today to relieve mucus plugging and send for additional cultures. 3. Add Mucomyst. 4. Continue with bronchodilators. 5. Systemic steroids with Solu-Medrol. 6. Additional recommendations to follow. Discussed with nursing respiratory therapy. [address] [address] CONSULTATION Name: IVONNE SARKAR Room #: 247-P [facility] IN M.R.#: [id number] Admission: 06/04/17 Attend Phys: Korina Abernathy Discharge: Date of : 49 Report #: [id number] Total critical care time is 35 minutes, not including procedures at this point. <ELECTRONICALLY SIGNED> By: Papa Caceres MD 06/06/17 1818 1400 2247 Papa Caceres MD /nt
--- NOTE | ~2017-06-04 | D ---
[facility] [place] [address] DISCHARGE SUMMARY Name: IVONNE SARKAR Room #: 247-P [facility] IN M.R.#: [id number] Admission: 06/04/17 Attend Phys: Korina Abernathy Discharge: 06/08/17 Date of : 49 Report #: [id number] THIS REPORT FOR: //name// CC: Rubne Caceres DATE OF SERVICE: 06/08/2017 FINAL DIAGNOSES: 1. Healthcare-associated pneumonia. 2. Sepsis. 3. Byygy-mg-bukuovp diastolic heart failure. 4. Uualx-vd-rfraomb respiratory failure. 5. Atrial fibrillation with rapid ventricular response. 6. Anemia of chronic disease. 7. Diabetes type 2. 8. Tracheostomy dependent. 9. Ventilator dependence. 10. Cerebrovascular disease with chronic right hemiparesis. 11. Decubitus ulcer stage 4, left ischial tuberosity. HOSPITAL COURSE: The patient was admitted from his long-term care ventilator unit for sepsis. He was treated for related healthcare pneumonia and complications with acute-on- chronic diastolic heart failure. He had issues with rapid atrial fibrillation. There was also a wound being treated. He was followed by multiple consultants and issues were generally stabilized. Ultimately, the care plan will be continued IV antibiotics and aggressive pulmonary care with suction bronchoscopy as needed, inhaled tobramycin and IV antibiotics. His wounds are being assessed. He is not a candidate for ventilator weaning due to his chronic respiratory failure and ventilator dependence with multiple failed attempts at weaning. DISPOSITION: He is being transferred to [facility] facility, Dr. Cummings will follow his stay there. I prepared all the transfer orders. <ELECTRONICALLY SIGNED> By: Soren Sawant MD 06/11/17 1358 0856 0904 Soren Sawant MD /nt
--- NOTE | ~2017-06-04 | HC ---
[facility] [place] [address] CONSULTATION Name: RONALDALEXIVONNE Korina Room #: 248-P [facility] IN ..#: [id number] Admission: 06/04/17 Attend Phys: Korina Abernathy Discharge: Date of : 49 Report #: [id number] THIS REPORT FOR: //name// CC: Ruben Caceres DATE OF SERVICE: 06/04/2017 CHIEF COMPLAINT: Stage 4 pressure ulcer to the left greater trochanter. HISTORY OF PRESENT ILLNESS: This is a 72-year-old male patient who was admitted to the hospital from the Emergency Room from [facility] Ventil[facility] for hypoxia. He has a long history of chronic hypoxic respiratory failure, prior stroke. He has had a pressure ulceration to the left hip for quite some time for which we have seen him in the past. He is seen today in the Intensive Care Unit. He has a trach. He has being suctioned. He does make eye contact, but does not respond to any questioning. PAST MEDICAL HISTORY: Positive for history of cerebrovascular accident with chronic hemiparesis, he has chronic hypoxic respiratory failure with ventilator dependence, obstructive sleep apnea, morbid obesity, type 2 diabetes, history of aspiration pneumonia, and atrial fibrillation. PAST SURGICAL HISTORY: The patient has previous PEG tube and tracheostomy. FAMILY HISTORY: Unknown. SOCIAL HISTORY: Unknown. ALLERGIES: SULFA AND ZURI INHIBITORS. MEDICATIONS: Include Synthroid, Coumadin, Ativan, Zoloft, hydrocodone, Levemir, Pepcid, diltiazem, Coreg. REVIEW OF SYSTEMS: Unobtainable due to the patient's condition. He is on a respirator in the Intensive Care Unit not able to answer any questions. PHYSICAL EXAMINATION: VITAL SIGNS: At this time include pulse rate 72, respiratory rate of 16, blood pressure of 81/56, temperature 98.0. GENERAL: This is a chronically ill-appearing male patient who appears to be in no obvious distress. HEENT: Head normocephalic. Nose and throat are clear. NECK: Demonstrates tracheostomy. LUNGS: Diminished, but clear anteriorly. HEART: Regular rhythm without murmurs. [facility] [address] [place] [address] CONSULTATION Name: IVONNE SARKAR Room #: 248-P [facility] IN .R.#: [id number] Admission: 06/04/17 Attend Phys: Korina Abernathy Discharge: Date of : 49 Report #: [id number] ABDOMEN: Soft. Bowel sounds are present. PEG tube is in place. The patient has a Maynard catheter. EXTREMITIES: Demonstrates stage 4 pressure ulceration into the left greater trochanter. There is some undermining and tunneling it does approached bone what I can see; however, is healthy, clean and granulating and does not appear to be infected. CLINICAL IMPRESSION: 1. Stage IV pressure ulcer to the left greater trochanter, chronic. 2. Chronic hypoxic respiratory failure. 3. Chronic ventilator dependence. 4. Type 2 diabetes mellitus. 5. Morbid obesity. 6. Healthcare-associated pneumonia. 7. History of cerebrovascular accident. 8. Moderate protein calorie malnutrition. RECOMMENDATIONS: At this point in time, we will recommend a quarter strength Dakin's moist gauze packing to the left hip daily. He will need turning and repositioning every 2 hours with aggressive nutritional support for ongoing wound healing. I do not feel he would be a good surgical candidate at this point in time. He does not need debridement at present. I do appreciate being asked to see him in consultation. <ELECTRONICALLY SIGNED> By: Tray Huntley MD 06/05/17 0853 [id number] 0032 Tray Huntley MD /nt
--- NOTE | ~2017-06-04 | HC ---
[facility] [place] [address] CONSULTATION Name: RONALDALEXIVONNE Hui Room #: 248-P [facility] IN M.R.#: [id number] Admission: 06/04/17 Attend Phys: Korina Abernathy Discharge: Date of : 49 Report #: [id number] THIS REPORT FOR: //name// CC: Ruben Caceres DATE OF SERVICE: 06/04/2017 REASON FOR CONSULTATION: I was asked to evaluate concerning respiratory failure, ventilator-associated pneumonia, healthcare associated. HISTORY OF PRESENT ILLNESS: The patient was a 72-year-old who resides at [facility] nursing home ventilatory unit due to respiratory failure. He has a tracheostomy and is on chronic ventilator. He had a previous stroke and has been vent dependent for many years. His last visit to [facility] was in December of 2016, where he had a multidrug resistant Pseudomonas pneumonia. He has been relatively stable until yesterday when he dropped his oxygen saturation and presented to the Emergency Room by EMS. Large amount of tracheal secretions have been suctioned. He underwent a bronchoscopy today. He is now on 65% FiO2. His blood pressure has been low in the 80s-100s range systolic, although his map has been in the 60 range. He is currently sedated and unable to converse following his bronchoscopy. There has been no hemoptysis. His cardiac enzymes were elevated at admission; he had atrial fibrillation with rapid ventricular response. There has been no nausea or vomiting. He has a PEG tube and an indwelling Maynard catheter, which was recently changed today. He has a chronic wound to his left greater trochanter. REVIEW OF SYSTEMS: Otherwise, noncontributory. PAST MEDICAL HISTORY: Pseudomonas aeruginosa pneumonia and urinary tract infection. Paroxysmal atrial fibrillation, ventilator-associated pneumonia, chronic left lower lobe infiltrate, hypertension, hypothyroidism, stroke, obesity, diabetes, respiratory failure. FAMILY HISTORY: Noncontributory. SOCIAL HISTORY: The patient remains in the [facility]cc. PHYSICAL EXAMINATION: VITAL SIGNS: Afebrile with maximum temperature of 99 degrees axillary, blood pressure post-bronchoscopy has been in the 90s systolic. He is on 65% FiO2 via his tracheostomy. GENERAL: The patient was lethargic. He would open his eyes to painful stimuli. He was pale. Obese. No adenopathy. Left hip dressing intact. Wound care had just evaluated and noted this area to be clean with no purulence or surrounding erythema. He has peripheral IVs in place. [address] [address] CONSULTATION Name: IVONNE SARKAR Room #: 248-P ADM [facility].#: [id number] Admission: 06/04/17 Attend Phys: Korina Abernathy Discharge: Date of : 49 Report #: [id number] HEENT: Tracheostomy was unremarkable. LUNGS: Coarse posteriorly bilaterally with consolidation heard in the left base posteriorly. HEART: Regular, without appreciable murmur. ABDOMEN: Obese, soft, nontender, no hepatosplenomegaly or mass. PEG site unremarkable. GENITOURINARY: Mild drainage from his penis with a small wound to the tip. EXTREMITIES: Venous stasis dermatitis changes remain stable without wounds. LABORATORY STUDIES: Sodium 139, potassium 3.7, bicarbonate 39, creatinine 0.8. Liver function test normal. Lactate 2.1. Troponin 1.6. BNP 9387. INR 1.3, hemoglobin 10.8, platelet count was 313,000. WBC 13,000 with 79% segs, 11% lymphs. Urinalysis positive for wbcs, bacteria and rbcs. Blood, urine and sputum cultures pending. Bronchoscopy culture pending. Influenza antigen negative. On 100% FiO2, his pO2 was 104, pCO2 of 58, pH 7.43 prior to his bronchoscopy. CT scan of the chest, old left lower lobe consolidation from his previous scan. New left upper lobe consolidation with more interstitial infiltrates in the right lower lobe and both upper lobes. These areas are new as well. IMPRESSION: A 72-year-old with complicated course with multidrug resistant Pseudomonas aeruginosa pneumonia, now with more consolidation and mucus plugging. He has required extensive pulmonary resuscitative measures with deep suctioning and now bronchoscopy. I am concerned about the multidrug resistant organisms that have been an issue with him in the past. We will empirically place the patient on Zerbaxa and vancomycin as well as aerosolized tobramycin. PLAN: We will continue fluid resuscitation and full ventilatory care. The patient will remain in the Intensive Care Unit. I have discussed the case with nursing at the bedside. We will adjust his antibiotics pending further culture result. <ELECTRONICALLY SIGNED> By: Jarred Cummings MD 06/05/17 1622 1815 0018 Jarred Cummings MD /nt
--- NOTE | ~2017-06-04 | EKG ---
[address] [employer] [address] ELECTROCARDIOGRAM REPORT Name: IVONNE SARKAR Room #: 248-P ADM IN M.R.#: [id number] Admission: 06/04/17 Attend Phys: Korina Abernathy Discharge: Date of : 49 Report #: [id number] THIS REPORT FOR: //name// [facility] ED Test Date: 2017-06-04 Test Time: 00:11:48 Pat Name: IVONNE SARKAR Department: Room: 248 Gender: M Channel Rebuilder: HELENA : 1945 Requested By: Jarred Alvarado Order Number: [id number] MD: Nolberto Bansal Measurements Intervals Bradley Rate: 105 P: AL: QRS: -51 QRSD: 171 T: 19 QT: 381 QTc: 504 Interpretive Statements Atrial flutter RBBB Borderline ST depression, lateral leads Compared to ECG 12/31/2016 07:58:35 ST (T wave) deviation now present Electronically Signed On 06-04-2017 7:53:38 [employer] by Nolberto Bansal [email or web address] <ELECTRONICALLY SIGNED> By: Nolberto Bansal MD, [facility] 06/04/17 0753 0011 0011 Nolberto Bansal MD, [facility] /EPI
--- NOTE | ~2017-06-04 | H ---
[facility] [place] [address] HISTORY AND PHYSICAL Name: IVONNE SARKAR Room #: 248-P ADM IN M.R.#: [id number] Admission: 06/04/17 Attend Phys: Korina Abernathy Discharge: Date of : 49 Report #: [id number] THIS REPORT FOR: //name// CC: Ruben Caceres DATE OF SERVICE: 06/04/2017 CHIEF COMPLAINT: Hypoxia. HISTORY OF PRESENT ILLNESS: The patient is a 72-year-old unfortunate gentleman who was sent to the Emergency Room from [facility] ventilator unit for hypoxia despite ventilator care. He has a long history of chronic hypoxic respiratory failure relating to a prior stroke and respiratory issues for which he has been ventilator dependent for a number of years. He has had several hospital admissions here for healthcare-related pneumonia and complications of chronic ventilator use. He has been unsuccessful at weaning from the ventilator in the past. According to reports, his sats dropped suddenly into the 80s despite adjustments of oxygen via the ventilator. He continued to have desaturations and was sent to the Emergency Room. So far, the nursing reports that overnight and through ER, they have been able to suction significant thick sputum from his trach tube and his saturations have stabilized. PAST MEDICAL HISTORY: Atrial fibrillation, cerebrovascular accident with chronic right hemiparesis, chronic hypoxic respiratory failure, ventilator dependence, obstructive sleep apnea, morbid obesity, diabetes type 2, history of aspiration pneumonia, ventilator dependence. History of pseudomonas pneumonia, history of MRSA. PAST SURGICAL HISTORY: He has a trach and a PEG tube. Otherwise, unknown. FAMILY HISTORY: Unknown. SOCIAL HISTORY: Unknown. ALLERGIES: SULFA, ZURI INHIBITORS. MEDICATIONS: Synthroid, Coumadin, Ativan, Zoloft, hydrocodone, Levemir, Pepcid, diltiazem, Coreg. REVIEW OF SYSTEMS: He is unable to give a review. PHYSICAL EXAMINATION: VITAL SIGNS: Temperature 37.2, pulse 98, respirations 17, blood pressure 117/56, O2 sat 98% on 70% FiO2. GENERAL: He is awake, alert with the staff working with him at the bedside. [address] [address] HISTORY AND PHYSICAL Name: IVONNE SARKAR Room #: 248-P [facility] IN .R.#: [id number] Admission: 06/04/17 Attend Phys: Korina Abernathy Discharge: Date of : 49 Report #: [id number] HEAD AND NECK: Unremarkable. Trach is in place. LUNGS: Clear anteriorly. HEART: Regular. ABDOMEN: Obese, soft, normoactive bowel sounds. PEG tube. He has a Maynard catheter. EXTREMITIES: No cyanosis, clubbing, 1+ edema. LABORATORY DATA: CT and X-ray were reviewed. ASSESSMENT: 1. Healthcare-associated pneumonia. 2. Acute on chronic hypoxic respiratory failure. 3. Chronic ventilator dependence. 4. Chronic atrial fibrillation. 5. Diabetes type 2. 6. Obstructive sleep apnea. 7. Morbid obesity. 8. Cerebrovascular disease with prior history of stroke. 9. Chronic right hemiparesis. 10. Chronic oropharyngeal dysphagia. 11. Acute on chronic diastolic congestive heart failure. 12. Anemia of chronic disease. 13. Moderate protein-calorie malnutrition. PLAN: He had been admitted to ICU with full treatment so far overnight. Cultures have been obtained and I will start empiric antibiotics and ask ID to follow him. There have been some cardiac issues with elevated troponin and BNP. His underlying heart failure with exacerbation may be causing some of his pulmonary issues and contributing to some mild ischemia. I would recommend conservative cardiac treatment at this point given his other comorbidities and life support requirement of chronic ventilator. Lovenox for DVT prophylaxis for now pending any other procedures and then consider reinstituting Coumadin at some point as long as there is no active bleeding. Pulmonary has been involved for ventilator management. Overall, his prognosis is poor with no plans for ventilator weaning at this time, but we will attempt medical stabilization. <ELECTRONICALLY SIGNED> By: Soren Sawant MD 06/05/17 1004 1337 1405 Soren Sawant MD /nt
--- NOTE | ~2017-06-04 | CNG ---
[facility] [place] [address] CYTO-NONGYN REPORT PROCEDURE Name: ANTONINAIVONNE Korina Room #: 248-P ADM IN M.R.#: [id number] Admission: 06/04/17 Date of : 49 Discharge: Report #: [id number] Path Case #: [id number] CYTOPATHOLOGY REPORT COLLECTION DATE: 06/04/2017 RECEIVED DATE: 06/04/2017 SUBMITTING PHYS: Dr. Papa Caceres OTHER PHYS: Dr. Ruben Cummings CLINICAL HISTORY: Resp. failure SPECIMEN(S) RECEIVED: A.Bronchial wash * * * * * * * * * * * * FINAL DIAGNOSIS: A. Bronchial wash: - No malignant cells identified. Few bronchial epithelial cells, inflammatory cells and macrophages present. PATHOLOGIST: Makenzie Robison M.D. REPORT ELECTRONICALLY SIGNED BY: Makenzie Robison M.D. DATE/TIME: 06/05/2017 16:02 * * * * * * * * * * * * GROSS PATHOLOGY: A. Bronchial wash: The specimen is submitted unfixed, labeled "Ivonne Johnson". Received by the Cytology Department is 12 mL of cloudy pink fluid. One ThinPrep slide was prepared. (mm 06.04.2017) TRUST MANAGER(S): SANTOS Balderas(ASCP)IAC INITIAL CPT CODE(S): A; 85316 Professional services performed by [facility] at [facility] [address], [place] [address] Technical services performed by [facility] at [address] [place] [address]., [address], [place] [address]. [facility] [address] [place] [address], [address] [place] [address] PHONE: [phone] DIRECTOR: Álvaro Dumont M.D. [facility] [address] [place] [address] CYTO-NONGYN REPORT PROCEDURE Name: IVONNE JOHNSON Room #: 248-P ADM IN M.R.#: [id number] Admission: 06/04/17 Date of : 49 Discharge: Report #: [id number] Path Case #: [id number] * * * END OF REPORT * * *
--- NOTE | ~2017-06-04 | 2DMMODE ---
[facility] [address] [place] [address] 2 D/M-MODE ECHOCARDIOGRAM Name: RONALDALEXIVONNE Hui Room #: 248-P [facility] IN .R.#: [id number] Admission: 06/04/17 Attend Phys: Ruben Sargent Discharge: Date of : 49 Date of Service: 06/04/17 1234 Report #: [id number] THIS REPORT FOR: //name// APPROVED REPORT Study performed: 06/04/2017 11:25:41 EXAM: Comprehensive 2D, Doppler, and color-flow Echocardiogram Patient Location: ICU Room #: 248 Status: routine BSA: 2.74 HR: 87 bpm BP: 100/62 mmHg Other Information Study Quality: Technically Limited Technically limited study due to patient on ventilator, inability to position patient, body habitus, patient starting desaturating, study was limited. Indications Diabetes Atrial Fibrillation Dyspnea Hypertension/HDD 2D Dimensions RVDd: 57.78 mm LVEF(%): 30.26 (>50%) IVSd: 15.80 (7-11mm) LVOT Diam: 25.35 (18-24mm) LVDd: 53.77 mm PWd: 16.32 (7-11mm) Ascending Ao: 33.29 (22-36mm) LVDs: 46.05 (25-40mm) Aortic Root: 32.31 mm IVC: 36.00 mm Medrano's LVEF: 30.26 % Volumes Left Atrial Volume (Systole) Single Plane 4CH: 126.42 mL Single Plane 2CH: 179.43 mL LA ESV Index: 62.00 mL/m2 Pulmonary Valve PV Peak Jamal.: 0.59 m/s PV Peak Gr.: 1.37 mmHg Tricuspid Valve [facility] [address] [place] [address] 2 D/M-MODE ECHOCARDIOGRAM Name: IVONNE SARKAR Room #: 248-P [facility] IN ..#: [id number] Admission: 06/04/17 Attend Phys: Ruben Sargent Discharge: Date of : 49 Date of Service: 06/04/17 1234 Report #: [id number] TR Peak Jamal.: 3.58 m/s TR Peak Gr.: 51.14 mmHg PA Pressure: 66.00 mmHg Left Ventricle Left ventricle is at the upper limits of normal. There is global hypokinesis of the left ventricle. Mild to moderate concentric left ventricular hypertrophy. Left ventricular systolic function is moderate to severely decreased. LVEF is 30-35%. This study is not technically sufficient to allow evaluation of the LV diastolic function. Right Ventricle Right ventricle is dilated. Right ventricle is hypokinetic. Atria Left atrium is dilated. Right atrium is dilated. Aortic Valve The aortic valve is normal in structure. Aortic valve is calcified. Mild aortic regurgitation. There is no aortic valvular stenosis. Mitral Valve The mitral valve is normal in structure. Mild mitral regurgitation. No evidence of mitral valve stenosis. Tricuspid Valve The tricuspid valve is normal in structure. There is mild tricuspid regurgitation. Estimated PAP 66 mmHg. There is moderate pulmonary hypertension. Pulmonic Valve The pulmonary valve is normal in structure. There is no pulmonic valvular regurgitation. Great Vessels The aortic root is normal in size. The inferior vena cava is dilated with no inspiratory collapse. Pericardium There is no pericardial effusion. <Conclusion> Left ventricle is at the upper limits of normal. [facility] [place] [address] 2 D/M-MODE ECHOCARDIOGRAM Name: RONALDALEXIVONNE Korina Room #: 248-P ADM IN M.R.#: [id number] Admission: 06/04/17 Attend Phys: Ruben Sargent Discharge: Date of : 49 Date of Service: 06/04/17 1234 Report #: [id number] There is global hypokinesis of the left ventricle. LVEF is 30-35%. Right ventricle is dilated. Right ventricle is hypokinetic. Left atrium is dilated. Right atrium is dilated. The aortic valve is normal in structure. Aortic valve is calcified. Mild aortic regurgitation. The mitral valve is normal in structure. Mild mitral regurgitation. The tricuspid valve is normal in structure. There is mild tricuspid regurgitation. Estimated PAP 66 mmHg. There is moderate pulmonary hypertension. The pulmonary valve is normal in structure. There is no pericardial effusion. <ELECTRONICALLY SIGNED> By: Raleigh Fermin MD 06/04/17 1234 1234 1234 Raleigh Fermin MD /INF
--- NOTE | ~2017-06-04 | P ---
[facility] [place] [address] PROCEDURE REPORT Name: IVONNE SARKAR Room #: 247-P [facility] IN M.R.#: [id number] Admission: 06/04/17 Attend Phys: Korina Abernathy Discharge: Date of : 49 Report #: [id number] THIS REPORT FOR: //name// CC: Ruben Caceres DATE OF SERVICE: 06/04/2017 PROCEDURE: Bronchoscopy through a tracheostomy tube while patient on mechanical ventilatory support. INDICATION: Left lower lung atelectasis, mucus plugging. PROCEDURE NOTATION: Reviewed CT scan of the chest. The patient continued to have intermittent respiratory failure and distress despite mechanical ventilatory support, likely due to mucus plugging. CT scan showed left lung atelectasis in the lower lobe. A bronchoscopy equipment was brought to the bedside. The patient already on mechanical ventilatory support, was placed on 100% FiO2. He was given 2 mg of Versed for conscious sedation. He then received 1% lidocaine down the tracheostomy to provide topical anesthesia. Through a swivel adapter, a 2.7 mm channel disposable scope was inserted through his tracheostomy until the distal trachea was seen. The airways were surveyed. Mainstem, lobar, segmental and subsegmental bronchi were explored, patent with no significant disease. Some mucus plugging noted throughout, but predominantly in left lower lobe. This was purged and aspirated with several 20 mL aliquots of saline. Specimens were collected and sent for culture and cytology. Airways were patent at the end of procedure. The patient tolerated well with no noted complications. IMPRESSION: Mucus plugging, left lower lobe, status post bronchoscopy with airway clearance. RECOMMENDATION: Continue with airway clearance, add Mucomyst aerosol treatments. Await cultures. Antibiotics per Infectious Disease service. <ELECTRONICALLY SIGNED> By: Papa Caceres MD 06/06/17 1818 1457 2345 Papa Caceres MD /nt
[~2017-06-04 00:01] MED LIST changes: +ATIVAN0.5 MG PO; +SOLU-MEDRO125 MG/24 IV PUSH
[2017-06-04 00:38] LABS: ABSOLUTE NEUTROPHILS 10.7 thou/uL (1.4-8.2); BASOPHILS 0.7 % (0.0-2.0); EOSINOPHILS 1.4 % (0.0-3.0); HEMATOCRIT 32.7 % (42.0-52.0); HEMOGLOBIN 10.8 gm/dL (14.0-18.0); LYMPHOCYTES 11.2 % (24.0-44.0); MCH 32.9 pg (26.0-34.0); MCHC 33.1 g/dL (28.0-37.0); MCV 99.6 fL (80.0-100.0); MONOCYTES 7.1 % (1.0-8.0); PLATELET COUNT 313 thou/uL (150-400); POLYS 79.6 % (36.0-66.0); RBC 3.29 mil/uL (4.50-6.00); RDW 17.9 % (10.5-14.5); URINE BILIRUBIN NEGATIVE (Negative); URINE BLOOD 3+ (Negative); URINE CLARITY CLOUDY; URINE COLOR YELLOW; URINE GLUCOSE-RANDOM* NEGATIVE (Negative); URINE KETONES NEGATIVE (Negative); URINE NITRITE-REFLEX NEGATIVE (Negative); URINE PROTEIN (DIPSTICK) 3+ (Negative); URINE SPECIFIC GRAVITY 1.025 (1.005-1.035); URINE UROBILINOGEN 0.2 E.U./dl (0.2-1.0); WBC 13.4 thou/uL (4.0-11.0)
[2017-06-04 00:44] LABS: BE(vivo) 12.1 mmol/L (-2 to +3); HCO3 38.5 mmol/L (22.0-26.0); PCO2 58.6 mmHg (35.0-45.0); PO2 104.6 mmHg (80.0-100.0); pH 7.435 (7.360-7.450); sO2 97.8 % (92.0-98.0)
[2017-06-04 00:47] LABS: URINE LEUKOCYTES-REFLEX 3+ (Negative)
[2017-06-04 01:09] LABS: URINE RBC >20 Many /HPF (0-2); URINE WBC-REFLEX >25 Many /HPF (0-5)
[2017-06-04 01:10] LABS: BACTERIA-REFLEX >30 Many /HPF (None Seen); CASTS None Seen /LPF (None Seen); MUCUS 0-3 Light strn/LPF (None Seen); SQUAMOUS 0-3 Few /LPF (0-3)
[2017-06-04 01:11] LABS: APTT 26.4 Seconds (24.5-32.8); INR 1.3; PROTIME 13.3 Seconds (9.3-11.4)
[2017-06-04 01:13] LABS: CRYSTALS None Seen /LPF (None Seen)
[2017-06-04 01:39] LABS: CALCIUM 9.7 mg/dL (8.5-10.1); CREATININE 0.8 mg/dL (0.7-1.3); POTASSIUM 3.7 mmol/L (3.5-5.1)
[2017-06-04 01:47] LABS: ALBUMIN 2.7 g/dL (3.4-5.0); MAGNESIUM 2.1 mg/dL (1.8-2.4); TOTAL BILIRUBIN 0.4 mg/dL (<0.1-1.0); TOTAL PROTEIN 7.9 g/dL (6.4-8.2); TROPONIN-I 1.54 ng/mL (<0.06)
[2017-06-04] MEDS ORDERED: ATIVAN0.5 MG PER TUBE (01:53)
[2017-06-04] MEDS ORDERED: ZOLOFT50 MG PER TUBE (01:54)
[2017-06-04] MEDS ORDERED: PROTEIN LIQUID PER TUBE (01:55)
[2017-06-04] MEDS ORDERED: ACETAMINOPHEN PER TUBE (01:57)
[2017-06-04] MEDS ORDERED: HYDROCODONE-ACE15 ML PER TUBE (01:58)
[2017-06-04] MEDS ORDERED: LEVEMIR (02:01)
[2017-06-04] MEDS ORDERED: ASPIRIN325 PO (10:45)
[2017-06-04] MEDS ORDERED: PREDNISONE 10 M10 MG PO (10:46)
[2017-06-04] MEDS ORDERED: CARDIZEM30 MG PO (10:48)
[2017-06-04] MEDS ORDERED: LEVEMIR SUBQ (10:49)
[2017-06-04] MEDS ORDERED: NOVOLOG100 UNIT/1 SUBQ (10:50)
[2017-06-05] VITALS (43 sets, daily range): BP systolic 81–142; BP diastolic 53–117
[2017-06-05 05:15] LABS: HEMATOCRIT 28.6 % (42.0-52.0); HEMOGLOBIN 9.4 gm/dL (14.0-18.0); MCH 32.8 pg (26.0-34.0); MCV 99.5 fL (80.0-100.0); RBC 2.88 mil/uL (4.50-6.00); WBC 13.4 thou/uL (4.0-11.0)
[2017-06-05 05:23] LABS: CALCIUM 9.3 mg/dL (8.5-10.1); CREATININE 0.9 mg/dL (0.7-1.3); POTASSIUM 3.8 mmol/L (3.5-5.1)
[2017-06-06] VITALS (24 sets, daily range): BP systolic 93–157; BP diastolic 54–101
[2017-06-06 02:45] LABS: HEMATOCRIT 31.5 % (42.0-52.0); HEMOGLOBIN 10.1 gm/dL (14.0-18.0); MCH 31.9 pg (26.0-34.0); MCHC 31.9 g/dL (28.0-37.0); MCV 99.9 fL (80.0-100.0); RBC 3.15 mil/uL (4.50-6.00); RDW 18.4 % (10.5-14.5); WBC 14.4 thou/uL (4.0-11.0)
[2017-06-06 02:56] LABS: INR 1.4; PROTIME 14.3 Seconds (9.3-11.4)
[2017-06-06 02:57] LABS: CALCIUM 9.4 mg/dL (8.5-10.1); CREATININE 0.9 mg/dL (0.7-1.3)
[2017-06-07] VITALS (30 sets, daily range): BP systolic 81–157; BP diastolic 55–103
[2017-06-08] VITALS (12 sets, daily range): BP systolic 80–126; BP diastolic 43–79
[2017-06-08] MEDS ORDERED: MERREM1 GM IV (09:34)
[2017-06-08] MEDS ORDERED: TOBRAMYCIN300 MG/7.5 INH (09:34)
[2017-06-08] MEDS ORDERED: ENOXAPARIN40 MG/0.1 SUBQ (09:35)
[2017-06-08] MEDS ORDERED: NITROGLYCERIN0.4 MG SUBLING (09:35)
[2017-06-08] MEDS ORDERED: ACETYLCYST200 MG/1 M INH (09:36)
[2017-06-08] MEDS ORDERED: FUROSEMIDE20 MG/2 ML IV PUSH (09:36)
[2017-06-08] MEDS ORDERED: ADULT TUSS100 MG/5 M PER TUBE (09:36)
[2017-06-08] MEDS ORDERED: SOLU-MEDRO125 MG/24 IV PUSH (09:37)
[2017-06-08] MEDS ORDERED: NOVOLOG100 UNIT/1 SUBQ (09:37)
[2017-06-08] MEDS ORDERED: LEVEMIR SUBQ (09:37)
[2017-06-08] MEDS ORDERED: ONDANSETRON HCL4 M1 IV PUSH (09:37)
[2017-06-08] MEDS ORDERED: LANOXIN 0.120.125 M1 PO (09:59)
== END 2017-06-08 12:41 | DRG 870 ==
LOC: ER 00:01 → EROBS 03:43 → ICU 03:43
PROVIDERS: Emergency Medicine; Internal Medicine Geriatric Medicine
PROC: 0BCB8ZZ Extirpation of Matter from Left Lower Lobe Bronchus, Via Natural or Artificial Opening Endoscopic (ICD-10-PCS; principal; 2017-06-04)
PROC: B24BZZ4 Ultrasonography of Heart with Aorta, Transesophageal (ICD-10-PCS; principal; 2017-06-04)
PROC: 5A1955Z Respiratory Ventilation, Greater than 96 Consecutive Hours (ICD-10-PCS; principal; 2017-06-04)
DX: A41.9 Sepsis, unspecified organism (principal); J96.22 Acute and chronic respiratory failure with hypercapnia; J13 Pneumonia due to Streptococcus pneumoniae; I50.33 Acute on chronic diastolic (congestive) heart failure; J96.21 Acute and chronic respiratory failure with hypoxia; J15.6 Pneumonia due to other Gram-negative bacteria; L89.224 Pressure ulcer of left hip, stage 4; I69.354 Hemiplegia and hemiparesis following cerebral infarction affecting left non-dominant side; Z68.41 Body mass index [BMI] 40.0-44.9, adult; Z99.11 Dependence on respirator [ventilator] status; I42.9 Cardiomyopathy, unspecified; E44.0 Moderate protein-calorie malnutrition; I11.0 Hypertensive heart disease with heart failure; N30.90 Cystitis, unspecified without hematuria; K21.9 Gastro-esophageal reflux disease without esophagitis; B96.20 Unspecified Escherichia coli [E. coli] as the cause of diseases classified elsewhere; Z16.12 Extended spectrum beta lactamase (ESBL) resistance; E03.9 Hypothyroidism, unspecified; D63.8 Anemia in other chronic diseases classified elsewhere; G47.33 Obstructive sleep apnea (adult) (pediatric); E66.01 Morbid (severe) obesity due to excess calories; E11.9 Type 2 diabetes mellitus without complications; I48.2 Chronic atrial fibrillation; Z87.891 Personal history of nicotine dependence; Z93.0 Tracheostomy status; Z93.1 Gastrostomy status; Z86.14 Personal history of Methicillin resistant Staphylococcus aureus infection; Z79.01 Long term (current) use of anticoagulants; Z79.4 Long term (current) use of insulin; Z79.899 Other long term (current) drug therapy; Z88.2 Allergy status to sulfonamides; Z88.8 Allergy status to other drugs, medicaments and biological substances
CPT/HCPCS: 10078